=== PATIENT | female | born 1945 | race Caucasian/White ===

== ENCOUNTER → 2017-01-05 | Outpatient (CLI) | payer MEDICARE, OTHER ==
--- NOTE | 2017-01-05 13:28 | RADIOLOGY REPORT (SQ) ---
EXAM DESCRIPTION: CHEST PA/LATERAL COMPLETED DATE/TIME: 01/05/2017 1:18 pm REASON FOR STUDY: TOBACCO USE COMPARISON: 08/28/2011 EXAM PARAMETERS: NUMBER OF VIEWS: two views TECHNIQUE: Digital Frontal and Lateral radiographic views of the chest acquired. RADIATION DOSE: NA LIMITATIONS: none FINDINGS: LUNGS AND PLEURA: No opacities, masses or pneumothorax. No pleural effusion. MEDIASTINUM AND HILAR STRUCTURES: No masses or contour abnormalities. HEART AND VASCULAR STRUCTURES: Heart size is stable. There is ectasia of the thoracic aorta. BONES: No acute findings. HARDWARE: None in the chest. OTHER: No other significant finding. IMPRESSION: NO SIGNIFICANT RADIOGRAPHIC FINDING IN THE CHEST. TECHNICAL DOCUMENTATION: JOB ID: [id number] [employer]- All Rights Reserved
== END ==
LOC: OD 12:55
PROVIDERS: ATTEND Family Medicine
DX: Z72.0 Tobacco use (principal); J45.909 Unspecified asthma, uncomplicated; J98.01 Acute bronchospasm; J44.9 Chronic obstructive pulmonary disease, unspecified
CPT/HCPCS: 71020

== ENCOUNTER → 2017-01-16 | Outpatient (CLI) | payer MEDICARE, OTHER ==
--- NOTE | 2017-01-16 16:59 | WOMENS IMAGING REPORT ---
EXAM DESCRIPTION: BILAT SCREENING MAMMO W/CAD COMPLETED DATE/TIME: 01/16/2017 1:31 pm REASON FOR STUDY: ROUTINE SCREENING; Z12.31 Z12.31 ENCNTR SCREEN MAMMOGRAM FOR MALIGNANT NEOPLASM O F MARQUIS COMPARISON: 2008 TECHNIQUE: Standard craniocaudal and mediolateral oblique views of each breast recorded using digita l acquisition. LIMITATIONS: None. FINDINGS: No masses, calcifications or architectural distortion. No areas of suspicion. Read with the assistance of CAD. .[facility] - R2 Cenova Version 1.3 .[facility] - R2 Cenova Version 1.3 .[facility] - R2 Cenova Version 2.4 .[facility] - R2 Cenova Version 2.4 .[facility] - R2 [employer] Helper Version 9.2 IMPRESSION: NORMAL MAMMOGRAM. BIRADS 1. BREAST DENSITY: b. There are scattered areas of fibroglandular density. BIRAD: 1 NEGATIVE RECOMMENDATION: ROUTINE SCREENING COMMENT: The patient has been notified of the results by letter per SA requirements. Additional no tification policies are in place for contacting patient with suspicious or incomplete findings. Quality ID #[id number]: The [employer] recommends an annual screening mammogram for women aged 40 years or over. This facility utilizes a reminder system to ensure that all patients receive reminder letters, and/or direct phone calls for appointments. This includes reminders for routine scr eening mammograms, diagnostic mammograms, or other Breast Imaging Interventions when appropriate. Th is patient will be placed in the appropriate reminder system. The [employer] (ACR) has developed recommendations for screening MRI of the breast s in certain patient populations, to be used in conjunction with mammography. Breast MRI surveillanc e may be appropriate for women with more than 20% lifetime risk of developing breast cancer as deter mined by genetic testing, significant family history of the disease, or history of mantle radiation f or Hodgkins Disease. ACR Practice Guidelines 2008. TECHNICAL DOCUMENTATION: FINDING NUMBER: (1) ASSESSMENT: (1) JOB ID: [id number] [employer]- All Rights Reserved
== END ==
LOC: WI 08:52
PROVIDERS: ATTEND Family Medicine
DX: Z12.31 Encounter for screening mammogram for malignant neoplasm of breast (principal)
CPT/HCPCS: 77067; G0202

== ENCOUNTER 2017-09-20 21:36 | Inpatient (IN) | payer MEDICARE, OTHER ==
[2017-09-20] MEDS ORDERED: ALBUTEROL SULFATE 0.083% NEB 2.5 MG/3 ML AMPUL NEB ONE (22:07)
[2017-09-20 22:09] LABS: ABSOLUTE BASOPHILS # (AUTO) 0.1 10^3/uL (0.0-0.2); ABSOLUTE MONOCYTES (AUTO) 0.8 10^3/uL (0.1-1.4); ABSOLUTE NEUT (AUTO) 7.9 10^3/uL (1.7-8.2); BASOPHILS % (AUTO) 0.8 % (0-2); EOSINOPHILS % (AUTO) 0.1 % (0-6); HEMATOCRIT 40.4 % (36.0-47.0); HEMOGLOBIN 13.8 g/dL (12.0-15.5); LYMPHOCYTES % (AUTO) 18.4 % (13-45); MEAN CORPUSCULAR HEMOGLOBIN 31.7 pg (27.0-33.4); MEAN CORPUSCULAR HGB CONC 34.2 g/dL (32.0-36.0); MEAN CORPUSCULAR VOLUME 93 fl (80-97); MONOCYTES % (AUTO) 7.3 % (3-13); PLATELET COUNT 247 10^3/uL (150-450); RED BLOOD COUNT 4.35 10^6/uL (3.72-5.28); SEGMENTED NEUTROPHILS % (AUTO) 73.4 % (42-78); TOTAL CELLS COUNTED % (AUTO) 100 %; WHITE BLOOD COUNT 10.8 10^3/uL (4.0-10.5)
--- NOTE | 2017-09-20 22:10 | ER Document Report ---
ED General - General Chief Complaint: Shortness Of Breath Stated Complaint: DIFFICULTY BREATHING Time Seen by Provider: 09/20/17 21:59 Notes: Patient is a 72-year-old female with a history of COPD who continues to smoke presents with complaint of difficulty breathing. She has had fevers for last 2 days. No chest pain. No fever the last 12 hours. Patient's daughter says appears that fever has subsided. Tonight she started having worsening difficulty breathing and some wheezing and daughter said that she is on a very "gurgly". They give her some breathing treatments at home and then called the months. While receiving a breathing treatments at home she coughed up a large amount of mucus in her lung gonzalez seem to clear somewhat that. In the months to give her Solu-Medrol as well as to breathing treatments. When paramedics initially arrived she is 86%. Currently she is 91-93% on room air. She also had an episode diarrhea. With episode diarrhea she had some abdominal pain but currently she has no pain at all. No vomiting. No other complaints at this time. TRAVEL OUTSIDE OF THE [place] IN LAST 30 DAYS: No - Related Data Allergies/Adverse Reactions: latex [Latex] Allergy (Mild, Verified 10/29/11 11:13) NOVACAINE Allergy (Mild, Uncoded 10/29/11 11:13) BAD HEADACHE, STOMACH UPSET Past Medical History - Social History Smoking Status: Current Every Day Smoker Frequency of alcohol use: None Drug Abuse: None Family History: Reviewed & Not Pertinent Patient has suicidal ideation: No Patient has homicidal ideation: No - Past Medical History Cardiac Medical History: Denies: Hx Coronary Artery Disease, Hx Heart Attack, Hx Hypertension Pulmonary Medical History: Reports: Hx Asthma, Hx Bronchitis, Hx COPD, Hx Pneumonia - x2 Neurological Medical History: Denies: Hx Cerebrovascular Accident, Hx Seizures Renal/ Medical History: Denies: Hx Peritoneal Dialysis GI Medical History: Denies: Hx Hepatitis, Hx Hiatal Hernia, Hx Ulcer Musculoskeltal Medical History: Reports Hx Arthritis - knees, ankles Infectious Medical History: Denies: Hx Hepatitis Past Surgical History: Reports: Hx Hysterectomy. Denies: Hx Mastectomy, Hx Open Heart Surgery, Hx Pacemaker - Immunizations Hx Diphtheria, Pertussis, Tetanus Vaccination: Yes Review of Systems - Review of Systems Notes: My Normal Review Basic REVIEW OF SYSTEMS: CONSTITUTIONAL : Fevers EENT: Denies eye, ear, throat, or mouth pain or symptoms. Denies nasal or sinus congestion. CARDIOVASCULAR: Denies chest pain. RESPIRATORY: Coughing and some difficulty breathing. GASTROINTESTINAL: Denies abdominal pain. Denies nausea, vomiting, or diarrhea. Denies constipation. Last BM: MUSCULOSKELETAL: Denies neck or back pain or joint pain or swelling. SKIN: Denies rash or skin lesions. NEUROLOGICAL: Denies altered mental status or loss of consciousness. Denies headache. Denies weakness or paralysis or loss of use of either side. Denies problems with gait or speech. Denies sensory or motor loss. ALL OTHER SYSTEMS REVIEWED AND NEGATIVE. Physical Exam - Vital signs Vitals: Temp Pulse Resp BP Pulse Ox 98.2 F 86 20 104/57 L 93 09/20/17 21:43 09/20/17 21:43 09/20/17 21:43 09/20/17 21:43 09/20/17 21:43 - Notes Notes: General Appearance: Well nourished, alert, cooperative, no acute distress, no obvious discomfort. Vitals: reviewed, See vital signs table. Head: no swelling or tenderness to the head Eyes: PERRL, EOMI, Conjuctiva clear Mouth: No decreasd moisture Throat: No tonsillar inflammation, No airway obstruction Neck: Supple, no neck tenderness Lungs: Few rhonchus breath sounds. No wheezing. No accessory muscle use. No tachypnea. Good air exchange. Heart: Normal rate, Regular rythm, No murmur, no rub Abdomen: Normal BS, soft, No rigidity, No abdominal tenderness, No guarding, no rebound, no abdominal masses, no organomegaly Extremities: strength 5/5 in all extremities, good pulses in all extremities, no swelling or tenderness in the extremities, no edema. Skin: warm, dry, appropriate color, no rash Neuro: speech clear, oriented x 3, normal affect, responds appropriately to questions. Course - Re-evaluation Re-evalutation: 09/21/17 00:13 Patient started to have some desaturations into the 80s. We therefore had to place nasal cannula oxygen on. On reevaluation she is except will be increased wheezing in her lung gonzalez and increased coarse breath sounds. We will give her another breathing treatment. Awaiting the read of the chest x-ray. 09/21/17 02:37 Patient's lung gonzalez have typically improved a little bit since was an albuterol treatment. Stress but whenever we take her off nasal cannula her O2 sats do drop down to about 87-88%. Because of this we will leave her on nasal cannula. Chest x-ray does show pneumonia which is consistent with a recent history of fever and cough. Started on doxycycline. Patient has received Solu- Medrol. I spoke with the hospitalist, Dr. Mancia, who agrees to admit the patient. Dictation of this chart was performed using voice recognition software; therefore, there may be some unintended grammatical errors. - Vital Signs Vital signs: Temp Pulse Resp BP Pulse Ox 98.0 F 86 14 107/68 94 09/21/17 02:00 09/20/17 21:43 09/21/17 02:04 09/21/17 02:00 09/21/17 02:04 - Laboratory Result Diagrams: 09/20/17 21:05 09/20/17 21:05 Laboratory results interpreted by me: 09/20/17 09/20/17 09/20/17 21:05 21:05 22:22 WBC 10.8 H VBG pH 7.50 H Potassium 3.2 L Glucose 195 H Total Protein 5.9 L - EKG Interpretation by Me Additional EKG results interpreted by me: 09/20/17 22:10 EKG is reviewed and interpreted by me. EKG shows sinus rhythm with a rate of [address] segment elevation or depression. There is a lot of baseline artifact making leads V3 and V4 little more difficult to interpret. MT interval , QRS duration, QTc intervals are within normal range. Old EKG for comparison is from December 20, 2012. Discharge - Discharge Clinical Impression: Hypoxemia Pneumonia Qualifiers: Pneumonia type: due to unspecified organism Laterality: unspecified laterality Lung location: unspecified part of lung Qualified Code(s): J18.9 - Pneumonia, unspecified organism Condition: Stable Disposition: ADMITTED OBSERVATION Admitting Provider: Hospitalist Unit Admitted: Telemetry Referrals: MARY ANNE WORLEY MD [Primary Care Provider] - Follow up as needed
[2017-09-20 22:33] LABS: ALANINE AMINOTRANSFERASE 15 U/L (9-52); ALBUMIN 3.5 g/dL (3.5-5.0); ALKALINE PHOSPHATASE 47 U/L (38-126); ANION GAP 11 (5-19); ASPARTATE AMINO TRANSFERASE 16 U/L (14-36); BILIRUBIN,DIRECT 0.2 mg/dL (0.0-0.4); BILIRUBIN,TOTAL 0.4 mg/dL (0.2-1.3); BLOOD UREA NITROGEN 8 mg/dL (7-20); CALCIUM 9.1 mg/dL (8.4-10.2); CARBON DIOXIDE 26 mmol/L (22-30); CHLORIDE 102 mmol/L (98-107); GLUCOSE 195 mg/dL (75-110); POTASSIUM 3.2 mmol/L (3.6-5.0); TOTAL PROTEIN 5.9 g/dL (6.3-8.2)
[2017-09-20 22:39] LABS: VENOUS BLOOD BASE EXCESS 5.1 mmol/L; VENOUS BLOOD HCO3 28.5 mmol/L (20-32); VENOUS BLOOD PCO2 37.5 mmHg (35-63); VENOUS BLOOD PH 7.5 (7.30-7.42)
[2017-09-20 22:49] LABS: A TYPE INFLUENZA AG NEGATIVE (NEGATIVE); B INFLUENZA AG NEGATIVE (NEGATIVE)
--- NOTE | 2017-09-20 23:26 | EKG REPORT ---
SEVERITY:- ABNORMAL ECG - SINUS RHYTHM ANTERIOR INFARCT, OLD : Confirmed by: Alberta Becerra 20-Sep-2017 23:26:40
[2017-09-21] MEDS ORDERED: ALBUTEROL SULFATE 0.083% NEB 2.5 MG/3 ML AMPUL NEB ONE (00:13)
[2017-09-21] MEDS ORDERED: NORMAL SALINE 500 ML IV ONE (00:14)
[2017-09-21] MEDS ORDERED: POTASSIUM CHLORIDE 10 MEQ TABLET.SA PO ONE (00:49)
--- NOTE | 2017-09-21 01:27 | RADIOLOGY REPORT (SQ) ---
EXAM DESCRIPTION: CHEST SINGLE VIEW CLINICAL HISTORY: 72 years Female, difficulty breathing COMPARISON: 6.5.17 NUMBER OF VIEWS/TECHNIQUE: 1/AP LIMITATIONS: None. FINDINGS: Small patchiness of the left lower lobe. Adequate lung volume and normal cardiac silhouette. Intact bony thorax. IMPRESSION: Small left lower lobar pneumonia/atelectasis.
[2017-09-21] MEDS ORDERED: DOXYCYCLINE HYCLATE 100 MG TABLET PO ONE (01:37)
[2017-09-21] MEDS ORDERED: HYDRALAZINE HCL INJ/PF 20 MG/1 ML SDV IV PRN (02:21)
[2017-09-21] MEDS ORDERED: CHLORPHENIRAMINE MALEATE 4 MG TABLET PO ONE (02:21)
[2017-09-21] MEDS ORDERED: GUAIFENESIN SYRP 200 MG/10 ML UDC PO PRN (02:22)
[2017-09-21] MEDS ORDERED: IPRATROPIUM/ALBUTEROL 0.5-2.5 MG/3 ML AMPUL NEB PRN (02:22)
[2017-09-21] MEDS ORDERED: CEFTRIAXONE 1 GM/D5W RTU 1 GM/50 ML RTUPB IV ONE (03:00)
[2017-09-21] MEDS ORDERED: FLUTICASONE NASAL SPRAY 50 MCG/SPRY 120 SPRAY/16 GM NASL ONE (03:00)
[2017-09-21] MEDS ORDERED: CHLORPHENIRAMINE MALEATE 4 MG TABLET ONE (03:01)
[2017-09-21] MEDS ORDERED: FLUTICASONE NASAL SPRAY 50 MCG/SPRY 120 SPRAY/16 GM ONE (03:01)
[2017-09-21] MEDS ORDERED: CEFTRIAXONE INJ 1000 MG VIAL ONE (03:17)
[2017-09-21] MEDS: HEPARIN SOD (PORCINE) 5,000 UNIT/ML 1 ML SYRINGE SUBCUT SCH ×3 (05:26→22:49)
--- NOTE | 2017-09-21 05:55 | PDOC H&P ---
History of Present Illness Admission Date/PCP: 09/21/17 02:36 MARY ANNE WORLEY MD Patient complains of: Shortness of breath History of Present Illness: GEO ZAMBRANO is a 72 year old female with a past medical history of hypothyroidism, dementia oriented to self, COPD with ongoing tobacco dependence. Patient herself has no complaints but accompanied by her daughter who states she has 2 days of subjective fever, nonproductive cough and shortness of breath not alleviated by nebulizer or cigarettes. EMS record oxygen saturation of 86% but currently 91-93% on room air. Workup is unremarkable but he is referred to the hospitalist for observation. Past Medical History Cardiac Medical History: Denies: Coronary Artery Disease, Myocardial Infarction, Hypertension Pulmonary Medical History: Reports: Asthma, Bronchitis, Chronic Obstructive Pulmonary Disease (COPD), Pneumonia - x2 Neurological Medical History: Denies: Seizures GI Medical History: Denies: Hepatitis, Hiatal Hernia Musculoskeltal Medical History: Reports: Arthritis - knees, ankles Psychiatric Medical History: Reports: Dementia, Tobacco Dependency Hematology: Denies: Anemia, Sickle Cell Disease Past Surgical History Past Surgical History: Reports: Hysterectomy Denies: Amputation, Mastectomy, Pacemaker Social History Information Source: Relative, [facility] Records Lives with: Family Smoking Status: Current Every Day Smoker Frequency of Alcohol Use: None - Advance Directive Resuscitation Status: Full Code Family History Family History: Other - Unobtainable Parental Family History Reviewed: Yes Children Family History Reviewed: Yes Sibling(s) Family History Reviewed.: Yes Medication/Allergy Home Medications: Albuterol Sulfate [Albuterol Sulfate 2.5mg/3 mL] 1 vial IH Q4 PRN 09/20/17 Albuterol Sulfate [Proair HFA] 2 puff PO DAILY 09/20/17 Cyproheptadine HCl 4 mg PO BID 09/20/17 Donepezil HCl [Donepezil HCl] 10 mg PO QHS 09/20/17 Levothyroxine Sodium 50 mcg PO DAILY 09/20/17 Allergies/Adverse Reactions: latex [Latex] Allergy (Mild, Verified 10/29/11 11:13) NOVACAINE Allergy (Mild, Uncoded 10/29/11 11:13) BAD HEADACHE, STOMACH UPSET Review of Systems ROS unobtainable: Due to mental status - Unobtainable secondary to dementia Constitutional: ABSENT: chills, fever(s), headache(s), weight gain, weight loss Eyes: ABSENT: visual disturbances Ears: ABSENT: hearing changes Cardiovascular: ABSENT: chest pain, dyspnea on exertion, edema, orthropnea, palpitations Respiratory: ABSENT: cough, hemoptysis Gastrointestinal: ABSENT: abdominal pain, constipation, diarrhea, hematemesis, hematochezia, nausea, vomiting Genitourinary: ABSENT: dysuria, hematuria Musculoskeletal: ABSENT: joint swelling Integumentary: ABSENT: rash, wounds Neurological: ABSENT: abnormal gait, abnormal speech, confusion, dizziness, focal weakness, syncope Psychiatric: ABSENT: anxiety, depression, homidical ideation, suicidal ideation Endocrine: ABSENT: cold intolerance, heat intolerance, polydipsia, polyuria Hematologic/Lymphatic: ABSENT: easy bleeding, easy bruising Physical Exam Vital Signs: Temp Pulse Resp BP Pulse Ox 97.5 F 86 17 95/58 L 96 09/21/17 05:30 09/20/17 21:43 09/21/17 05:01 09/21/17 05:00 09/21/17 05:01 General appearance: PRESENT: no acute distress, cooperative, disheveled, thin Head exam: PRESENT: atraumatic Eye exam: PRESENT: conjunctiva pink, EOMI, PERRLA. ABSENT: scleral icterus Ear exam: PRESENT: normal external ear exam Mouth exam: PRESENT: moist, tongue midline Neck exam: ABSENT: carotid bruit, JVD, lymphadenopathy, thyromegaly Respiratory exam: PRESENT: accessory muscle use, crackles, rales, tachypnea, wheezes Cardiovascular exam: PRESENT: RRR. ABSENT: diastolic murmur, rubs, systolic murmur Pulses: PRESENT: normal dorsalis pedis pul Vascular exam: PRESENT: normal capillary refill GI/Abdominal exam: PRESENT: normal bowel sounds, soft. ABSENT: distended, guarding, mass, organolmegaly, rebound, tenderness Rectal exam: PRESENT: deferred Extremities exam: PRESENT: full ROM. ABSENT: calf tenderness, clubbing, pedal edema Neurological exam: PRESENT: alert, awake, oriented to person, CN II-XII grossly intact. ABSENT: motor sensory deficit Psychiatric exam: PRESENT: appropriate affect, normal mood. ABSENT: homicidal ideation, suicidal ideation Skin exam: PRESENT: dry, intact, warm. ABSENT: cyanosis, rash Results Impressions: Chest X-Ray 09/20/17 21:51 IMPRESSION: Small left lower lobar pneumonia/atelectasis. Assessment & Plan - Diagnosis (1) Acute exacerbation of chronic bronchitis Is this a current diagnosis for this admission?: Yes Plan: Telemetry observation, albuterol and Atrovent, prednisone and incentive spirometry with flutter valve if able. (2) COPD exacerbation Is this a current diagnosis for this admission?: Yes Plan: Incentive spirometry, flutter valve, supplemental oxygen and tobacco avoidance (3) Hypokalemia Is this a current diagnosis for this admission?: Yes Plan: Evaluate magnesium and replete as needed reevaluate chemistry (4) Dementia Is this a current diagnosis for this admission?: Yes Plan: Supportive care evaluate TSH given history (5) Tobacco dependence Is this a current diagnosis for this admission?: Yes Plan: Tobacco Dependence patient received tobacco cessation counseling and offered nicotine replacement options - Time Time Spent: 50 to 70 Minutes
[2017-09-21] MEDS ORDERED: HEPARIN SOD (PORCINE) 5,000 UNIT/ML 1 ML SYRINGE SUBCUT SCH (06:00)
[2017-09-21 06:09] LABS: HEMATOCRIT 40.9 % (36.0-47.0); MEAN CORPUSCULAR HEMOGLOBIN 31.6 pg (27.0-33.4); MEAN CORPUSCULAR HGB CONC 34.1 g/dL (32.0-36.0); MEAN CORPUSCULAR VOLUME 93 fl (80-97); PLATELET COUNT 250 10^3/uL (150-450); RED BLOOD COUNT 4.42 10^6/uL (3.72-5.28); WHITE BLOOD COUNT 9.4 10^3/uL (4.0-10.5)
[2017-09-21 06:23] LABS: ANION GAP 12 (5-19); BLOOD UREA NITROGEN 9 mg/dL (7-20); CALCIUM 9.4 mg/dL (8.4-10.2); CARBON DIOXIDE 25 mmol/L (22-30); CHLORIDE 104 mmol/L (98-107); GLUCOSE 171 mg/dL (75-110); POTASSIUM 4.1 mmol/L (3.6-5.0)
[2017-09-21] MEDS: IPRATROPIUM/ALBUTEROL 0.5-2.5 MG/3 ML AMPUL NEB SCH ×3 (08:05→20:34)
[2017-09-21] MEDS: FLUTICASONE NASAL SPRAY 50 MCG/SPRY 120 SPRAY/16 GM NASL SCH ×2 (09:34→22:51)
[2017-09-21] MEDS: LEVOTHYROXINE SODIUM 0.05 MG TABLET PO SCH (09:34)
[2017-09-21] MEDS: AZITHROMYCIN 500 MG in DEXTROSE 5%-WATER 250 ML IV SCH (09:35)
--- NOTE | 2017-09-21 11:15 | PDOC PROGRESS REPORT ---
Subjective Progress Note for:: 09/21/17 Subjective:: This is a follow-up visit for COPD exacerbation and acute bronchitis. The patient is pleasantly demented and does not assist in any review of symptoms. She has 3 daughters and a son-in-law at the bedside who were quite upset that the patient is still down in the emergency room after having been told that their mother would have a room within 30 minutes of admission. I have explained the patient's current diagnoses. According to their report they find their mother to only be slightly better than when she came in. Her daughter states that she was breathing worse than what I see her at the bedside. [facility]. I informed them that I have been in contact with the nursing preparation plant supervisor who states that the hospital is working to get all patients out of the ER no later than 3 PM. There are however no guarantees. Patient's family has agreed to wait to see if she can get a bed. If not then they would like for her to be transferred out of the hospital. Reason For Visit: COPD EXACERBATION C PNEUMONIA Physical Exam Vital Signs: Temp Pulse Resp BP Pulse Ox 97.5 F 48 L 18 114/66 95 09/21/17 05:30 09/21/17 08:05 09/21/17 09:01 09/21/17 09:00 09/21/17 09:01 GENERAL: This is a well-developed and thin appearing elderly white female resting in bed currently in no acute distress. HEART: Regular rate and rhythm. No murmurs, rubs or gallops. LUNGS: Coarse breath sounds bilaterally throughout with equal rise and fall of the chest. Nasal cannula is in place. ABDOMEN: Soft, nontender, nondistended with normoactive bowel sounds EXTREMETIES: No clubbing, cyanosis or edema. 2+ peripheral pulses bilaterally. NEURO: Awake. She is not oriented to person place or time. Patient moves all extremities. Results Laboratory Results: 09/21/17 05:50 09/21/17 05:50 09/21/17 09/21/17 09/21/17 05:50 05:50 05:50 WBC 9.4 RBC 4.42 Hgb 14.0 Hct 40.9 MCV 93 MCH 31.6 MCHC 34.1 RDW 13.0 Plt Count 250 Sodium 141.0 Potassium 4.1 Chloride 104 Carbon Dioxide 25 Anion Gap 12 BUN 9 Creatinine 0.66 Est GFR ( Amer) > 60 Est GFR (Non-Af Amer) > 60 Glucose 171 H Calcium 9.4 TSH 2.83 Impressions: Chest X-Ray 09/20/17 21:51 IMPRESSION: Small left lower lobar pneumonia/atelectasis. Assessment & Plan - Diagnosis (1) Acute respiratory failure with hypoxemia Is this a current diagnosis for this admission?: Yes Plan: Patient is not usually on oxygen at home. Her recorded sats by EMS were in the very low 80s. Continue supplemental oxygen to maintain sats between 88 and 92% . Respiratory failure is likely secondary to COPD exacerbation with acute bronchitis. Apparently the patient had influenza a week ago. (2) Acute bronchitis Is this a current diagnosis for this admission?: Yes Plan: Continue antibiotics. Chest x-ray suggests atelectasis versus a very small pneumonia. The patient does not have an elevated white blood cell count, fever and likely atelectasis. However because she is quite elderly and recently had the flu, we do not want to miss the superimposed pneumonia. Recheck chest x- ray in the morning. (3) COPD exacerbation Is this a current diagnosis for this admission?: Yes Plan: Continue nebulizer treatments. No wheezes on auscultation. I am going to hold off on steroids for now. Continue antibiotics for now. (4) Hypokalemia Is this a current diagnosis for this admission?: Yes Plan: This was replaced and is resolved. (5) Dementia Is this a current diagnosis for this admission?: Yes Plan: Patient's family states that she usually ambulates at will and that she has not been herself and constantly sleeping. Continue to monitor. This likely acute encephalopathy superimposed on dementia, based on their description (6) Tobacco dependence Is this a current diagnosis for this admission?: Yes Plan: Smoking cessation is advised. The patient smokes 2 packs per day. She lives with her granddaughter and her daughters have tried to limit her to just one pack. - Time Time Spent with patient: 25-34 minutes - Inpatient Certification Medical Necessity: Need for IV Antibiotics
[2017-09-21] MEDS: ACETAMINOPHEN 325 MG TABLET PO PRN ×2 (16:33→20:41)
[2017-09-21] MEDS ORDERED: (PENDING PHARMACY ID) (Donepezil Hcl [Donepezil Hcl] 10 MG) PO SCH (22:00)
[2017-09-21] MEDS ORDERED: CEFTRIAXONE 1 GM/D5W RTU 1 GM/50 ML RTUPB IV SCH (22:00)
[2017-09-21] MEDS: CEFTRIAXONE SODIUM 1,000 MG in NORMAL SALINE 100 ML IV SCH (22:49)
[2017-09-22] MEDS: IPRATROPIUM/ALBUTEROL 0.5-2.5 MG/3 ML AMPUL NEB SCH ×4 (01:59→19:41)
[2017-09-22] MEDS: HEPARIN SOD (PORCINE) 5,000 UNIT/ML 1 ML SYRINGE SUBCUT SCH ×3 (05:43→23:29)
[2017-09-22 06:44] LABS: HEMOGLOBIN 12.7 g/dL (12.0-15.5); MEAN CORPUSCULAR HGB CONC 33.5 g/dL (32.0-36.0); MEAN CORPUSCULAR VOLUME 93 fl (80-97); PLATELET COUNT 278 10^3/uL (150-450); RED BLOOD COUNT 4.11 10^6/uL (3.72-5.28); RED CELL DISTRIBUTION WIDTH 12.7 % (11.5-14.0); WHITE BLOOD COUNT 10.7 10^3/uL (4.0-10.5)
[2017-09-22 06:56] LABS: ANION GAP 7 (5-19); BLOOD UREA NITROGEN 9 mg/dL (7-20); CALCIUM 8.7 mg/dL (8.4-10.2); CARBON DIOXIDE 26 mmol/L (22-30); CHLORIDE 108 mmol/L (98-107); GLUCOSE 85 mg/dL (75-110); SODIUM 140.9 mmol/L (137-145)
--- NOTE | 2017-09-22 08:13 | RADIOLOGY REPORT (SQ) ---
EXAM DESCRIPTION: CHEST SINGLE VIEW COMPLETED DATE/TIME: 09/22/2017 7:50 am REASON FOR STUDY: atelactasis vs pneumonia COMPARISON: 09/20/2017 EXAM PARAMETERS: NUMBER OF VIEWS: One view. TECHNIQUE: Single frontal radiographic view of the chest acquired. RADIATION DOSE: NA LIMITATIONS: None. FINDINGS: LUNGS AND PLEURA: Lungs currently clear with resolution of the recent left lower lobe pneu monia. MEDIASTINUM AND HILAR STRUCTURES: No masses. Contour normal. HEART AND VASCULAR STRUCTURES: Heart normal in size. Normal vasculature. BONES: No acute findings. HARDWARE: None in the chest. OTHER: No other significant finding. IMPRESSION: Lungs currently clear. TECHNICAL DOCUMENTATION: JOB ID: [id number] [employer]- All Rights Reserved
[2017-09-22] MEDS: ACETAMINOPHEN 325 MG TABLET PO PRN (09:18)
[2017-09-22] MEDS: LEVOTHYROXINE SODIUM 0.05 MG TABLET PO SCH (09:18)
[2017-09-22] MEDS: AZITHROMYCIN 500 MG in DEXTROSE 5%-WATER 250 ML IV SCH (09:19)
[2017-09-22] MEDS: FLUTICASONE NASAL SPRAY 50 MCG/SPRY 120 SPRAY/16 GM NASL SCH ×2 (09:19→23:29)
[2017-09-22] MEDS ORDERED: CYPROHEPTADINE HCL 4 MG TABLET PO SCH (10:00)
--- NOTE | 2017-09-22 16:16 | PDOC PROGRESS REPORT ---
Subjective Progress Note for:: 09/22/17 Subjective:: Daughter at bedside with multiple concerns. Daughter states that patient's been coughing up very thick sputum. Daughter reports that patient does cough that is usually nonproductive. Daughter also reports that patient lost her in October 2016 and feels that her mother is very depressed. Daughter also reports that patient smokes about 2 packs per day and has been trying to encourage her mother to stop smoking. Daughter also states that patient's appetite has been very poor and that she has been placed on appetite stimulant which seems to help. Daughter is concerned that patient is not receiving her Aricept and has requested that it be restarted. Reason For Visit: COPD EXACERBATION C PNEUMONIA Physical Exam Vital Signs: Temp Pulse Resp BP Pulse Ox 97.5 F 58 L 16 108/58 L 94 09/22/17 11:00 09/22/17 14:00 09/22/17 14:00 09/22/17 11:00 09/22/17 14:00 Intake & Output 09/21/17 09/22/17 09/23/17 06:59 06:59 06:59 Intake Total 110 Output Total 600 Balance -490 Weight 55.4 kg General appearance: PRESENT: no acute distress, thin Head exam: PRESENT: atraumatic, normocephalic Eye exam: PRESENT: conjunctiva pink, EOMI. ABSENT: scleral icterus Ear exam: PRESENT: normal external ear exam Mouth exam: PRESENT: moist, tongue midline Neck exam: ABSENT: carotid bruit, JVD, lymphadenopathy, thyromegaly Respiratory exam: PRESENT: accessory muscle use, prolonged expiratory phas, wheezes. ABSENT: rales, rhonchi Cardiovascular exam: PRESENT: RRR. ABSENT: diastolic murmur, rubs, systolic murmur Pulses: PRESENT: normal dorsalis pedis pul Vascular exam: PRESENT: normal capillary refill GI/Abdominal exam: PRESENT: normal bowel sounds, soft. ABSENT: distended, guarding, mass, organolmegaly, rebound, tenderness Rectal exam: PRESENT: deferred Extremities exam: PRESENT: full ROM. ABSENT: calf tenderness, clubbing, pedal edema Musculoskeletal exam: PRESENT: full ROM Neurological exam: PRESENT: alert, awake, oriented to person, oriented to place , oriented to time, oriented to situation, CN II-XII grossly intact. ABSENT: motor sensory deficit Psychiatric exam: PRESENT: appropriate affect, normal mood. ABSENT: homicidal ideation, suicidal ideation Skin exam: PRESENT: dry, intact, warm. ABSENT: cyanosis, rash Results Laboratory Results: 09/22/17 05:45 09/22/17 05:45 09/22/17 09/22/17 05:45 05:45 WBC 10.7 H RBC 4.11 Hgb 12.7 Hct 38.0 MCV 93 MCH 31.0 MCHC 33.5 RDW 12.7 Plt Count 278 Sodium 140.9 Potassium 4.0 Chloride 108 H Carbon Dioxide 26 Anion Gap 7 BUN 9 Creatinine 0.64 Est GFR ( Amer) > 60 Est GFR (Non-Af Amer) > 60 Glucose 85 Calcium 8.7 Impressions: Chest X-Ray 09/22/17 07:00 IMPRESSION: Lungs currently clear. Assessment & Plan - Diagnosis (1) Depression Is this a current diagnosis for this admission?: Yes Plan: We will consult Dr. Tomás Cohen to evaluate patient. Daughter is very concerned that mother is very depressed due to the loss of her . (2) Moderate protein-calorie malnutrition Is this a current diagnosis for this admission?: Yes Plan: We will place patient on Megace 800 mg p.o. daily. Patient and daughter state that patient does not like supplemental drinks therefore will allow patient to have regular diet. Will CT chest to evaluate for possible lung mass (3) Debility Is this a current diagnosis for this admission?: Yes Plan: We will have patient work with PT OT (4) Acute bronchitis Is this a current diagnosis for this admission?: Yes Plan: We will continue current antibiotics. Will order CT of chest to evaluate for possible pneumonia. (5) Acute respiratory failure with hypoxemia Is this a current diagnosis for this admission?: Yes Plan: We will continue breathing treatments, steroids, and antibiotics. (6) COPD exacerbation Is this a current diagnosis for this admission?: Yes Plan: We will continue steroids, breathing treatments, and antibiotics. Will consult pulmonary to help assist with care. CT of chest has been ordered to evaluate for pneumonia (7) Dementia Is this a current diagnosis for this admission?: Yes Plan: Aricept restarted. (8) Pneumonia Qualifiers: Pneumonia type: due to unspecified organism Laterality: unspecified laterality Lung location: unspecified part of lung Qualified Code(s): J18.9 - Pneumonia, unspecified organism Is this a current diagnosis for this admission?: Yes Plan: We will continue current antibiotics. Will check CT of chest to evaluate for pneumonia. (9) Tobacco dependence Is this a current diagnosis for this admission?: Yes Plan: will place order for nicotine patch
[2017-09-22] MEDS ORDERED: DONEPEZIL HCL 5 MG TABLET PO ONE ×2 (17:00→20:00)
--- NOTE | 2017-09-22 17:36 | RADIOLOGY REPORT (SQ) ---
EXAM DESCRIPTION: CT CHEST WITHOUT COMPLETED DATE/TIME: 09/22/2017 5:24 pm REASON FOR STUDY: concern for Pneumonia COMPARISON: CT chest from 08/22/2000 TECHNIQUE: CT scan performed of the chest without intravenous contrast. Images reviewed with lung, soft tissue and bone windows. Reconstructed coronal and sagittal MPR images reviewed. All images st ored on PACS. All CT scanners at this facility use dose modulation, iterative reconstruction, and/or weight based d osing when appropriate to reduce radiation dose to as low as reasonably achievable (ALARA). [facility]: Dose Right [facility]: CareDose [facility]: Dose Right [facility]: Teradose 4D [facility]: Smart Sponsia RADIATION DOSE: CT Rad equipment meets quality standard of care and radiation dose reduction techniq ues were employed. CTDIvol: 5.4 mGy. DLP: 196 mGy-cm. mGy. LIMITATIONS: No technical limitations. FINDINGS: LUNGS AND PLEURA: There is bilateral lower lobe airspace disease. There are tree-in-bud o pacities within the left upper lobe. No significant pleural effusion. No pneumothorax. HILAR AND MEDIASTINAL STRUCTURES: No identified masses or abnormal nodes. No obvious aneurysm. HEART AND VASCULAR STRUCTURES: Atherosclerotic calcifications including coronary artery calcification s Stable ascending thoracic aortic aneurysm measuring 4.2 cm. No pericardial effusion. UPPER ABDOMEN: No significant findings. Limited exam. THYROID AND OTHER SOFT TISSUES: No masses. No adenopathy. BONES: No significant finding. HARDWARE: None in the chest. OTHER: No other significant findings. IMPRESSION: BILATERAL LOWER LOBE AIRSPACE DISEASE WITH TREE-IN-BUD OPACITIES LEFT UPPER LOBE COMPATI BLE MULTIFOCAL PNEUMONIA/PNEUMONITIS. STABLE ASCENDING THORACIC AORTIC ANEURYSM. TECHNICAL DOCUMENTATION: JOB ID: [id number] Quality ID # [id number]: Final reports with documentation of one or more dose reduction techniques (e.g., Au tomated exposure control, adjustment of the mA and/or kV according to patient size, use of iterative reconstruction technique) 2010 [employer]- All Rights Reserved
[2017-09-22] MEDS ORDERED: CYPROHEPTADINE HCL 4 MG TABLET PO ONE (18:00)
[2017-09-22] MEDS: CEFTRIAXONE SODIUM 1,000 MG in NORMAL SALINE 100 ML IV SCH (23:28)
[2017-09-22] MEDS: METHYLPREDNISOLONE INJ 40 MG/1 ML SDV IV SCH (23:29)
[2017-09-23] MEDS: IPRATROPIUM/ALBUTEROL 0.5-2.5 MG/3 ML AMPUL NEB SCH ×4 (02:04→20:25)
[2017-09-23] MEDS: METHYLPREDNISOLONE INJ 40 MG/1 ML SDV IV SCH ×2 (05:51→22:11)
[2017-09-23] MEDS: HEPARIN SOD (PORCINE) 5,000 UNIT/ML 1 ML SYRINGE SUBCUT SCH ×3 (05:51→22:11)
[2017-09-23 06:52] LABS: ALANINE AMINOTRANSFERASE 26 U/L (9-52); ALKALINE PHOSPHATASE 50 U/L (38-126); ANION GAP 9 (5-19); ASPARTATE AMINO TRANSFERASE 14 U/L (14-36); BILIRUBIN,DIRECT 0.2 mg/dL (0.0-0.4); BILIRUBIN,TOTAL 0.2 mg/dL (0.2-1.3); BLOOD UREA NITROGEN 8 mg/dL (7-20); CALCIUM 8.6 mg/dL (8.4-10.2); CARBON DIOXIDE 24 mmol/L (22-30); CHLORIDE 108 mmol/L (98-107); GLUCOSE 139 mg/dL (75-110); POTASSIUM 4.6 mmol/L (3.6-5.0); SODIUM 141.4 mmol/L (137-145); TOTAL PROTEIN 5.7 g/dL (6.3-8.2)
[2017-09-23 07:20] LABS: HEMATOCRIT 38.5 % (36.0-47.0); HEMOGLOBIN 12.9 g/dL (12.0-15.5); MEAN CORPUSCULAR HGB CONC 33.5 g/dL (32.0-36.0); MEAN CORPUSCULAR VOLUME 93 fl (80-97); PLATELET COUNT 315 10^3/uL (150-450); RED BLOOD COUNT 4.15 10^6/uL (3.72-5.28); RED CELL DISTRIBUTION WIDTH 13.1 % (11.5-14.0); WHITE BLOOD COUNT 7.9 10^3/uL (4.0-10.5)
[2017-09-23 08:39] LABS: ABSOLUTE LYMPHOCYTES# (MANUAL) 0.9 10^3/uL (0.5-4.7); ABSOLUTE MONOCYTES # (MANUAL) 0.2 10^3/uL (0.1-1.4); ABSOLUTE NEUTROPHILS# (MANUAL) 6.9 10^3/uL (1.7-8.2); BASOPHILS % (MANUAL) 0 % (0-2); EOSINOPHILS % (MANUAL) 0 % (0-6); HYPOCHROMASIA SLIGHT; LYMPHOCYTES % (MANUAL) 11 % (13-45); MONOCYTES % (MANUAL) 2 % (3-13); PLATELET CLUMPS PRESENT; SEGMENTED NEUTROPHILS % (MAN) 87 % (42-78); TOTAL CELLS COUNTED 100; TOXIC GRANULATION SLIGHT
[2017-09-23 09:22] LABS: APPEARANCE,URINE CLEAR; BILIRUBIN,URINE NEGATIVE (NEGATIVE); COLOR,URINE YELLOW; GLUCOSE, URINE NEGATIVE (NEGATIVE); KETONES,URINE NEGATIVE (NEGATIVE); LEUKOCYTE ESTERASE,URINE MODERATE (NEGATIVE); NITRITE,URINE NEGATIVE (NEGATIVE); PROTEIN,URINE NEGATIVE (NEGATIVE); UROBILINOGEN,URINE NEGATIVE mg/dL (<2.0)
[2017-09-23] MEDS: CYPROHEPTADINE HCL 4 MG TABLET PO SCH ×2 (09:36→17:38)
[2017-09-23] MEDS: LEVOTHYROXINE SODIUM 0.05 MG TABLET PO SCH (09:36)
[2017-09-23] MEDS: MEGESTROL ACETATE SUSP 400 MG/10 ML UDCUP PO SCH (09:36)
[2017-09-23] MEDS: NICOTINE 21 MG/24 HR PATCH.TD24 TD SCH ×2 (09:37→22:20)
[2017-09-23] MEDS: FLUTICASONE NASAL SPRAY 50 MCG/SPRY 120 SPRAY/16 GM NASL SCH ×2 (09:37→22:11)
[2017-09-23] MEDS: AZITHROMYCIN 500 MG in DEXTROSE 5%-WATER 250 ML IV SCH (09:49)
--- NOTE | 2017-09-23 14:55 | PDOC PROGRESS REPORT ---
Subjective Progress Note for:: 09/23/17 Subjective:: She states her breathing is improving. Patient states that she is not coughing up as much phlegm. Reason For Visit: COPD EXACERBATION C PNEUMONIA Physical Exam Vital Signs: Temp Pulse Resp BP Pulse Ox 97.4 F 68 18 99/41 L 90 L 09/23/17 12:00 09/23/17 14:23 09/23/17 14:23 09/23/17 12:00 09/23/17 14:23 Intake & Output 09/22/17 09/23/17 09/24/17 06:59 06:59 06:59 Intake Total 110 1265 320 Output Total 600 1250 Balance -490 15 320 Weight 98.7 kg 59.2 kg General appearance: PRESENT: no acute distress, well-developed, well-nourished Head exam: PRESENT: atraumatic, normocephalic Eye exam: PRESENT: conjunctiva pink, EOMI. ABSENT: scleral icterus Ear exam: PRESENT: normal external ear exam Mouth exam: PRESENT: moist, tongue midline Neck exam: ABSENT: carotid bruit, JVD, lymphadenopathy, thyromegaly Respiratory exam: PRESENT: other - Positive for prolonged expiratory phase, decreased accessory muscle use, no wheezing heard this morning anteriorly Cardiovascular exam: PRESENT: RRR. ABSENT: diastolic murmur, rubs, systolic murmur Pulses: PRESENT: normal dorsalis pedis pul Vascular exam: PRESENT: normal capillary refill GI/Abdominal exam: PRESENT: normal bowel sounds, soft. ABSENT: distended, guarding, mass, organolmegaly, rebound, tenderness Rectal exam: PRESENT: deferred Extremities exam: PRESENT: full ROM. ABSENT: calf tenderness, clubbing, pedal edema Musculoskeletal exam: PRESENT: full ROM Neurological exam: PRESENT: alert, awake, oriented to person, oriented to place , oriented to time, oriented to situation, CN II-XII grossly intact. ABSENT: motor sensory deficit Psychiatric exam: PRESENT: appropriate affect, normal mood. ABSENT: homicidal ideation, suicidal ideation Skin exam: PRESENT: dry, intact, warm. ABSENT: cyanosis, rash Results Laboratory Results: 09/23/17 05:31 09/23/17 05:31 09/23/17 09/23/17 09/23/17 05:31 05:31 08:40 WBC 7.9 RBC 4.15 Hgb 12.9 Hct 38.5 MCV 93 MCH 31.0 MCHC 33.5 RDW 13.1 Plt Count 315 Seg Neutrophils % Not Reportable Lymphocytes % Not Reportable Monocytes % Not Reportable Eosinophils % Not Reportable Basophils % Not Reportable Absolute Neutrophils Not Reportable Absolute Lymphocytes Not Reportable Absolute Monocytes Not Reportable Absolute Eosinophils Not Reportable Absolute Basophils Not Reportable Sodium 141.4 Potassium 4.6 Chloride 108 H Carbon Dioxide 24 Anion Gap 9 BUN 8 Creatinine 0.63 Est GFR ( Amer) > 60 Est GFR (Non-Af Amer) > 60 Glucose 139 H Calcium 8.6 Total Bilirubin 0.2 AST 14 ALT 26 Alkaline Phosphatase 50 Total Protein 5.7 L Albumin 3.0 L Urine Color YELLOW Urine Appearance CLEAR Urine pH 7.0 Ur Specific [place] 1.010 Urine Protein NEGATIVE Urine Glucose (UA) NEGATIVE Urine Ketones NEGATIVE Urine Blood NEGATIVE Urine Nitrite NEGATIVE Ur Leukocyte Esterase MODERATE H Urine WBC (Auto) 5 Urine RBC (Auto) 1 Impressions: Chest CT 09/22/17 00:00 IMPRESSION: BILATERAL LOWER LOBE AIRSPACE DISEASE WITH TREE-IN-BUD OPACITIES LEFT UPPER LOBE COMPATIBLE MULTIFOCAL PNEUMONIA/PNEUMONITIS. STABLE ASCENDING THORACIC AORTIC ANEURYSM. Chest X-Ray 09/22/17 07:00 IMPRESSION: Lungs currently clear. Assessment & Plan - Diagnosis (1) Depression Is this a current diagnosis for this admission?: Yes Plan: Will await recommendations from Dr. Tomás Cohen (2) Moderate protein-calorie malnutrition Is this a current diagnosis for this admission?: Yes Plan: Continue Megace. (3) Debility Is this a current diagnosis for this admission?: Yes Plan: We will have patient work with PT OT (4) Acute bronchitis Is this a current diagnosis for this admission?: Yes Plan: CT demonstrates evidence consistent with multifocal pneumonia (5) Acute respiratory failure with hypoxemia Is this a current diagnosis for this admission?: Yes Plan: In setting of pneumonia and COPD exacerbation: We will discontinue Rocephin and place patient on Levaquin. Due to tree in bud presentation patient could have MAC therefore will continue the Zithromax (6) COPD exacerbation Is this a current diagnosis for this admission?: Yes Plan: We will discontinue Rocephin and place patient on Levaquin. Will space steroids to every 12 hours. Will continue breathing treatments. (7) Dementia Is this a current diagnosis for this admission?: Yes Plan: Aricept (8) Pneumonia Qualifiers: Pneumonia type: due to unspecified organism Laterality: unspecified laterality Lung location: unspecified part of lung Qualified Code(s): J18.9 - Pneumonia, unspecified organism Is this a current diagnosis for this admission?: Yes Plan: Community-acquired pneumonia gram-positive organism: Patient on Levaquin. Due to patient having tree in bud appearance on CT will continue Zithromax for possible MAC. (9) Tobacco dependence Is this a current diagnosis for this admission?: Yes Plan: nicotine patch - Time Time Spent with patient: 15-24 minutes
[2017-09-23] MEDS ORDERED: LEVOFLOXACIN 750 MG TABLET PO ONE (15:30)
--- NOTE | 2017-09-23 16:12 | PSYCHOLOGICAL NOTE ---
Psych Note - Psych Note Psych Note: Reason for consult : Depression Collateral: Patient's granddaughter present Nayely Rivera . Patient's granddaughter reports patient has been without her dementia medication for 5 days due to the effect it had on her heart. Patient's daughter reports at this time patient is living in the past and has been talking about her ( who has passed years ago). Patient's granddaughter reports she lives with her and is has her aunt who lives next door and helps her taking care of her mother. Patient's grand daughter reports patient has had a lot of health issues and due to her health issues had been laying in bed for days, could hear crackling noises coming from her chest. Patient's grand daughter reports patient has seen a specialist for her dementia. Patient reports she has a history of depression but states " I have a lot to live for". Denies SI/HI. Patient reports she is good and doesnt need anything. Clinician observed patient is tired and is strained to have a conversation due to the status of her health ( pneumonia). Medication Recommendation: Medication recommendation made by psychiatric provider Dr. Og MD. 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 Recommendation to avoid psych medications due to the Cyproheptadine she is on. There is a possibility of Central Nervous System Depression and psychomotor impairment.
--- NOTE | 2017-09-23 16:26 | PDOC CONSULTATION ---
Consultation Consult Date: 09/23/17 Attending physician:: RY SANTA Consult reason:: Acute/chronic respiratory failure History of Present Illness Admission Date/PCP: 09/21/17 02:36 MARY ANNE WORLEY MD History of Present Illness: GEO ZAMBRANO is a 72 year old female with a past medical history of hypothyroidism, dementia oriented to self, COPD with ongoing tobacco dependence. Patient herself has no complaints but accompanied by her daughter who states she has 2 days of subjective fever, nonproductive cough and shortness of breath not alleviated by nebulizer or cigarettes. EMS record oxygen saturation of 86% but currently 91-93% on room air. She admits to dyspnea on exertion with activities of daily living. She denies hemoptysis her PPD status was negative dates unknown she denies any history of chronic lung disease as a child or adolescent she admits to exposure to passive smoke as a child as well as an adult she herself is smoked one half packs a day for 50 giving her approximately [id number] history. 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 1 dog sitting hair and chickens that are outside the swelling. She denies any recent travel except went to [place] for approximately 4 days she denies angina-like chest pain is on one pillow weekly PND occasional nocturnal cough no edema. She admits to snoring, restless sleep nocturia 2-3 times per night unrestful sleep and excessive daytime somnolence. Most of the history is confirmed by family members as the patient does display some obvious but mild dementia Past Medical History Cardiac Medical History: Denies: Coronary Artery Disease, Myocardial Infarction, Hypertension Pulmonary Medical History: Reports: Asthma, Bronchitis, Chronic Obstructive Pulmonary Disease (COPD), Pneumonia - x2 EENT Medical History: Reports: Cataracts Neurological Medical History: Denies: Seizures Endocrine Medical History: Reports: Hyperthyroidism, Hypothyroidism Renal/ Medical History: Denies: End Stage Renal Disease, Nephrolithiasis Malignancy Medical History: Denies: Bone Cancer, Brain Cancer, Colorectal Cancer, Leukemia, Liver Cancer , Lymphoma, Ovarian Cancer, Pancreatic Cancer GI Medical History: Denies: Cirrhosis, Crohn's Disease, Diverticulitis, Hepatitis, Hiatal Hernia Musculoskeltal Medical History: Reports: Arthritis - knees, ankles Denies: Fibromyalgia Skin Medical History: Denies: Eczema, Psoriasis Psychiatric Medical History: Reports: Dementia, Depression, Tobacco Dependency Traumatic Medical History: Denies: Pneumothorax, Traumatic Brain Injury Hematology: Denies: Anemia, Sickle Cell Disease Infectious Medical History: Denies: Hepatitis B, Hepatitis C, HIV Past Surgical History Past Surgical History: Reports: Hysterectomy Denies: Amputation, Mastectomy, Pacemaker Social History Information Source: Relative, [facility] Records 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 Lives with: Family Smoking Status: Current Some Day Smoker Cigarettes Packs Per Day: 1 Last Time Smoked: 09/20/2017 Frequency of Alcohol Use: None Hx Recreational Drug Use: No Drugs: None Hx Prescription Drug Abuse: No Do you have pets?: Yes Have you had any respiratory illnesses as a child?: No Have you travelled outside of [place] in the past 12 months?: Yes - [facility] - Advance Directive Resuscitation Status: Full Code Family History Family History: Other - Unobtainable Parental Family History Reviewed: Yes Children Family History Reviewed: Yes Sibling(s) Family History Reviewed.: Yes Medication/Allergy Home Medications: Cyproheptadine HCl 4 mg PO BID 09/20/17 Donepezil HCl [Donepezil HCl] 10 mg PO QHS 09/20/17 Levothyroxine Sodium 50 mcg PO Q6AM 09/20/17 Allergies/Adverse Reactions: latex [Latex] Allergy (Mild, Verified 10/29/11 11:13) NOVACAINE Allergy (Mild, Uncoded 10/29/11 11:13) BAD HEADACHE, STOMACH UPSET Review of Systems ROS unobtainable: Due to mental status Gastrointestinal: PRESENT: diarrhea Neurological: PRESENT: confusion, frequent falls, memory loss Psychiatric: ABSENT: anxiety, homidical ideation, suicidal ideation Endocrine: ABSENT: menstrual abnormalities Hematologic/Lymphatic: PRESENT: easy bruising Physical Exam Vital Signs: Temp Pulse Resp BP Pulse Ox 97.4 F 68 18 99/41 L 90 L 09/23/17 12:00 09/23/17 14:23 09/23/17 14:23 09/23/17 12:00 09/23/17 14:23 Intake & Output 09/22/17 09/23/17 09/24/17 06:59 06:59 06:59 Intake Total 110 1265 320 Output Total 600 1250 Balance -490 15 320 Weight 98.7 kg 59.2 kg General appearance: PRESENT: no acute distress, cooperative, disheveled, thin, well-developed Head exam: PRESENT: atraumatic, normocephalic Eye exam: PRESENT: conjunctiva pale, EOMI. ABSENT: nystagmus, periorbital swelling, scleral icterus Mouth exam: PRESENT: dry mucosa, neck supple, tongue midline Neck exam: ABSENT: carotid bruit, JVD, lymphadenopathy, thyromegaly, tracheal deviation, tracheostomy Respiratory exam: PRESENT: crackles, decreased breath sounds, prolonged expiratory phas, rhonchi, symmetrical, unlabored, wheezes. ABSENT: retraction, stridor Cardiovascular exam: PRESENT: RRR, +S1, +S2 Pulses: PRESENT: normal radial pulses GI/Abdominal exam: PRESENT: diminished bowel sounds, soft Extremities exam: ABSENT: calf tenderness, clubbing, joint swelling Musculoskeletal exam: ABSENT: ambulatory, deformity, dislocation Neurological exam: PRESENT: awake, oriented to person, oriented to place. ABSENT: oriented to time, oriented to situation Psychiatric exam: PRESENT: flat affect Skin exam: PRESENT: dry, warm Results Laboratory Results: 09/23/17 05:31 09/23/17 05:31 09/23/17 09/23/17 09/23/17 05:31 05:31 08:40 WBC 7.9 RBC 4.15 Hgb 12.9 Hct 38.5 MCV 93 MCH 31.0 MCHC 33.5 RDW 13.1 Plt Count 315 Seg Neutrophils % Not Reportable Lymphocytes % Not Reportable Monocytes % Not Reportable Eosinophils % Not Reportable Basophils % Not Reportable Absolute Neutrophils Not Reportable Absolute Lymphocytes Not Reportable Absolute Monocytes Not Reportable Absolute Eosinophils Not Reportable Absolute Basophils Not Reportable Sodium 141.4 Potassium 4.6 Chloride 108 H Carbon Dioxide 24 Anion Gap 9 BUN 8 Creatinine 0.63 Est GFR ( Amer) > 60 Est GFR (Non-Af Amer) > 60 Glucose 139 H Calcium 8.6 Total Bilirubin 0.2 AST 14 ALT 26 Alkaline Phosphatase 50 Total Protein 5.7 L Albumin 3.0 L Urine Color YELLOW Urine Appearance CLEAR Urine pH 7.0 Ur Specific [place] 1.010 Urine Protein NEGATIVE Urine Glucose (UA) NEGATIVE Urine Ketones NEGATIVE Urine Blood NEGATIVE Urine Nitrite NEGATIVE Ur Leukocyte Esterase MODERATE H Urine WBC (Auto) 5 Urine RBC (Auto) 1 Impressions: Chest CT 09/22/17 00:00 IMPRESSION: BILATERAL LOWER LOBE AIRSPACE DISEASE WITH TREE-IN-BUD OPACITIES LEFT UPPER LOBE COMPATIBLE MULTIFOCAL PNEUMONIA/PNEUMONITIS. STABLE ASCENDING THORACIC AORTIC ANEURYSM. Chest X-Ray 09/22/17 07:00 IMPRESSION: Lungs currently clear. Assessment & Plan - Diagnosis (1) Acute respiratory failure with hypoxemia Is this a current diagnosis for this admission?: Yes Plan: Supplemental oxygen nocturnal trend oximetry 6 minute walk (2) COPD exacerbation Is this a current diagnosis for this admission?: Yes Plan: Generic Name Dose Route Start Last Admin Trade Name Freq PRN Reason Stop Dose Admin Methylprednisolone Sodium Succinate 40 mg 09/23/17 22:00 Solu-Medrol Inj/Pf 40 Mg/1 Ml Sdv IV 10/23/17 21:59 Q12 TIFFANIE Albuterol/Ipratropium 3 ml 09/21/17 02:22 Duoneb 3 Ml Ampul NEB 10/21/17 02:21 [id number] PRN SHORTNESS OF BREATH Albuterol/Ipratropium 3 ml 09/21/17 08:00 09/23/17 14:22 Duoneb 3 Ml Ampul NEB 10/21/17 07:59 3 ml RTQ6 TIFFANIE (3) Dementia Is this a current diagnosis for this admission?: Yes (4) Moderate protein-calorie malnutrition Is this a current diagnosis for this admission?: Yes Plan: Dietary consult (5) Pneumonia Qualifiers: Pneumonia type: due to unspecified organism Laterality: unspecified laterality Lung location: unspecified part of lung Qualified Code(s): J18.9 - Pneumonia, unspecified organism Is this a current diagnosis for this admission?: Yes Plan: Radiographic infiltrates but no positive cultures thus far (6) Tobacco dependence Is this a current diagnosis for this admission?: Yes Plan: Would suggest holding on transdermal nicotine until patient demonstrates a need
[2017-09-23] MEDS: DONEPEZIL HCL 5 MG TABLET PO SCH (20:06)
--- NOTE | 2017-09-23 21:16 | RADIOLOGY REPORT (SQ) ---
EXAM DESCRIPTION: CHEST SINGLE VIEW COMPLETED DATE/TIME: 09/23/2017 8:58 pm REASON FOR STUDY: Chest Pain COMPARISON: 09/30/2017 EXAM PARAMETERS: NUMBER OF VIEWS: One view. TECHNIQUE: Single frontal radiographic view of the chest acquired. RADIATION DOSE: NA LIMITATIONS: None. FINDINGS: LUNGS AND PLEURA: No pneumothorax. Similar left basilar airspace disease and small pleura l effusion. Minimal subsegmental atelectasis in the right lung base. MEDIASTINUM AND HILAR STRUCTURES: Stable. HEART AND VASCULAR STRUCTURES: Stable. BONES: No acute findings. HARDWARE: None in the chest. OTHER: No other significant finding. IMPRESSION: Similar left basilar airspace disease and small pleural effusion. Minimal subsegmental atelectasis in the right lung base. TECHNICAL DOCUMENTATION: JOB ID: [id number] [place]-72 2010 [employer]- All Rights Reserved
[2017-09-23] MEDS ORDERED: DONEPEZIL HCL 5 MG TABLET PO SCH (22:00)
[2017-09-23 22:22] LABS: CREATINE KINASE MB 0.24 ng/mL (<4.55)
[2017-09-23 22:27] LABS: TROPONIN I < 0.012 ng/mL
[2017-09-24] MEDS: IPRATROPIUM/ALBUTEROL 0.5-2.5 MG/3 ML AMPUL NEB SCH ×4 (02:30→20:03)
[2017-09-24] MEDS: HEPARIN SOD (PORCINE) 5,000 UNIT/ML 1 ML SYRINGE SUBCUT SCH ×3 (05:48→22:17)
--- NOTE | 2017-09-24 08:14 | EKG REPORT ---
SEVERITY:- ABNORMAL ECG - SINUS RHYTHM BORDERLINE LEFT AXIS DEVIATION CONSIDER ANTEROSEPTAL INFARCT : Confirmed by: Jarvis Green MD 24-Sep-2017 08:13:11
[2017-09-24 08:42] LABS: ABSOLUTE LYMPHOCYTES (AUTO) 1.5 10^3/uL (0.5-4.7); ABSOLUTE MONOCYTES (AUTO) 0.5 10^3/uL (0.1-1.4); ABSOLUTE NEUT (AUTO) 8.7 10^3/uL (1.7-8.2); BASOPHILS % (AUTO) 0.2 % (0-2); EOSINOPHILS % (AUTO) 0.1 % (0-6); HEMATOCRIT 37.9 % (36.0-47.0); HEMOGLOBIN 12.8 g/dL (12.0-15.5); LYMPHOCYTES % (AUTO) 14.3 % (13-45); MEAN CORPUSCULAR HEMOGLOBIN 31.2 pg (27.0-33.4); MEAN CORPUSCULAR HGB CONC 33.7 g/dL (32.0-36.0); MEAN CORPUSCULAR VOLUME 93 fl (80-97); MONOCYTES % (AUTO) 4.8 % (3-13); PLATELET COUNT 392 10^3/uL (150-450); RED CELL DISTRIBUTION WIDTH 13.2 % (11.5-14.0); SEGMENTED NEUTROPHILS % (AUTO) 80.6 % (42-78); TOTAL CELLS COUNTED % (AUTO) 100 %; WHITE BLOOD COUNT 10.8 10^3/uL (4.0-10.5)
[2017-09-24 09:09] LABS: ALANINE AMINOTRANSFERASE 23 U/L (9-52); ALBUMIN 3.1 g/dL (3.5-5.0); ALKALINE PHOSPHATASE 47 U/L (38-126); ANION GAP 10 (5-19); ASPARTATE AMINO TRANSFERASE 12 U/L (14-36); BILIRUBIN,DIRECT 0.3 mg/dL (0.0-0.4); BILIRUBIN,TOTAL 0.3 mg/dL (0.2-1.3); BLOOD UREA NITROGEN 15 mg/dL (7-20); CALCIUM 9.2 mg/dL (8.4-10.2); CARBON DIOXIDE 23 mmol/L (22-30); CHLORIDE 108 mmol/L (98-107); GLUCOSE 120 mg/dL (75-110); POTASSIUM 4.5 mmol/L (3.6-5.0); SODIUM 140.6 mmol/L (137-145); TOTAL PROTEIN 5.8 g/dL (6.3-8.2)
[2017-09-24] MEDS: FLUTICASONE NASAL SPRAY 50 MCG/SPRY 120 SPRAY/16 GM NASL SCH ×2 (09:51→22:17)
[2017-09-24] MEDS: CYPROHEPTADINE HCL 4 MG TABLET PO SCH ×2 (09:51→16:59)
[2017-09-24] MEDS: LEVOTHYROXINE SODIUM 0.05 MG TABLET PO SCH (09:51)
[2017-09-24] MEDS: LEVOFLOXACIN 750 MG TABLET PO SCH (09:52)
[2017-09-24] MEDS: MEGESTROL ACETATE SUSP 400 MG/10 ML UDCUP PO SCH (09:52)
[2017-09-24] MEDS: METHYLPREDNISOLONE INJ 40 MG/1 ML SDV IV SCH (09:53)
[2017-09-24] MEDS ORDERED: AZITHROMYCIN 250 MG TABLET PO SCH (10:00)
--- NOTE | 2017-09-24 13:37 | PDOC PROGRESS REPORT ---
Subjective Progress Note for:: 09/24/17 Subjective:: Pt states that his breathing is improving. Pt currently being evaluating for difficulty swallowing. Reason For Visit: COPD EXACERBATION C PNEUMONIA Physical Exam Vital Signs: Temp Pulse Resp BP Pulse Ox 97.8 F 63 16 126/64 H 90 L 09/24/17 03:58 09/24/17 08:14 09/24/17 08:14 09/24/17 03:58 09/24/17 08:14 Pulse Oximeter Nocturnal Start: 09/23/17 16: 26 Freq: RTQ4 Status: Complete Document 09/24/17 04:00 CMI (Rec: 09/24/17 04:26 CMI [email or web address]) Nocturnal Pulse Oximetry Equipment Usage Equipment in Use Oxygen Delivery Method (includes room Room Air air) O2 Sat by Pulse Oximetry (92-100) 91 Continuous SpO2 Machine # 13 Intake & Output 09/23/17 09/24/17 09/25/17 06:59 06:59 06:59 Intake Total 1265 1100 Output Total 1250 1050 Balance 15 50 Weight 98.7 kg 59.6 kg General appearance: PRESENT: no acute distress, thin, well-nourished Eye exam: PRESENT: conjunctiva pink, EOMI. ABSENT: scleral icterus Ear exam: PRESENT: normal external ear exam Mouth exam: PRESENT: moist, tongue midline Neck exam: ABSENT: carotid bruit, JVD, lymphadenopathy, thyromegaly Respiratory exam: PRESENT: accessory muscle use, prolonged expiratory phas. ABSENT: rales, rhonchi Cardiovascular exam: PRESENT: RRR. ABSENT: diastolic murmur, rubs, systolic murmur Pulses: PRESENT: normal dorsalis pedis pul Vascular exam: PRESENT: normal capillary refill GI/Abdominal exam: PRESENT: normal bowel sounds, soft. ABSENT: distended, guarding, mass, organolmegaly, rebound, tenderness Rectal exam: PRESENT: deferred Extremities exam: PRESENT: full ROM. ABSENT: calf tenderness, clubbing, pedal edema Musculoskeletal exam: PRESENT: full ROM Neurological exam: PRESENT: alert, awake, oriented to person, oriented to place , oriented to time, oriented to situation, CN II-XII grossly intact. ABSENT: motor sensory deficit Psychiatric exam: PRESENT: appropriate affect, normal mood. ABSENT: homicidal ideation, suicidal ideation Skin exam: PRESENT: dry, intact, warm. ABSENT: cyanosis, rash Results Laboratory Results: 09/24/17 08:10 09/24/17 08:10 09/24/17 09/24/17 08:10 08:10 WBC 10.8 H RBC 4.10 Hgb 12.8 Hct 37.9 MCV 93 MCH 31.2 MCHC 33.7 RDW 13.2 Plt Count 392 Seg Neutrophils % 80.6 H Lymphocytes % 14.3 Monocytes % 4.8 Eosinophils % 0.1 Basophils % 0.2 Absolute Neutrophils 8.7 H Absolute Lymphocytes 1.5 Absolute Monocytes 0.5 Absolute Eosinophils 0.0 Absolute Basophils 0.0 Sodium 140.6 Potassium 4.5 Chloride 108 H Carbon Dioxide 23 Anion Gap 10 BUN 15 Creatinine 0.67 Est GFR ( Amer) > 60 Est GFR (Non-Af Amer) > 60 Glucose 120 H Calcium 9.2 Magnesium 2.2 Total Bilirubin 0.3 AST 12 L ALT 23 Alkaline Phosphatase 47 Total Protein 5.8 L Albumin 3.1 L 09/23/17 09/23/17 21:00 21:00 Creatine Kinase 29 L CK-MB (CK-2) 0.24 Troponin I < 0.012 Impressions: Chest CT 09/22/17 00:00 IMPRESSION: BILATERAL LOWER LOBE AIRSPACE DISEASE WITH TREE-IN-BUD OPACITIES LEFT UPPER LOBE COMPATIBLE MULTIFOCAL PNEUMONIA/PNEUMONITIS. STABLE ASCENDING THORACIC AORTIC ANEURYSM. Chest X-Ray 09/23/17 00:00 IMPRESSION: Similar left basilar airspace disease and small pleural effusion. Minimal subsegmental atelectasis in the right lung base. Assessment & Plan - Diagnosis (1) Depression Is this a current diagnosis for this admission?: Yes Plan: Will await recommendations from Dr. Tomás Cohen (2) Moderate protein-calorie malnutrition Is this a current diagnosis for this admission?: Yes Plan: Continue Megace. (3) Debility Is this a current diagnosis for this admission?: Yes Plan: PT OT (4) Acute bronchitis Is this a current diagnosis for this admission?: Yes Plan: CT demonstrates evidence consistent with multifocal pneumonia. Will continue Levaquin. Azithromycin has been discontinued. (5) Acute respiratory failure with hypoxemia Is this a current diagnosis for this admission?: Yes Plan: In setting of pneumonia and COPD exacerbation: Will continue Levaquin. Will discontinue Azithromycin. (6) COPD exacerbation Is this a current diagnosis for this admission?: Yes Plan: We will continue Levaquin. Will discontinue Zithromax. Will change patient steroids to daily. Appreciate pulmonary's assistance. (7) Dementia Is this a current diagnosis for this admission?: Yes Plan: Aricept (8) Pneumonia Qualifiers: Pneumonia type: due to unspecified organism Laterality: unspecified laterality Lung location: unspecified part of lung Qualified Code(s): J18.9 - Pneumonia, unspecified organism Is this a current diagnosis for this admission?: Yes Plan: Community-acquired pneumonia gram-positive organism: Patient on Levaquin. (9) Tobacco dependence Is this a current diagnosis for this admission?: Yes Plan: nicotine patch - Time Time Spent with patient: 15-24 minutes
--- NOTE | 2017-09-24 15:51 | ST Inp Modified Barium Swallow ---
Medical Diagnosis - Medical Diagnoses Medical Diagnosis Description & ICD-10 Code(s): COPD exacerbation, pneumonia ST Inpatient [facility] [place] - General Date: 09/24/17 - History History Obtained From: Other - EMR -: Medical - Patient admitted due to COPD exacerbation and pneumonia. Physician was suspicious of aspiration pneumonia. Medications: Medications Reviewed Allergies: Refer to medical record - Subjective Current Nutritional Means: PO Current PO Diet: Regular Current Symptoms: Pneumonia Pain: Patient reports, 0/5 - Objective Assessment: Upright, Left Lateral - Food Trials Food Trials Used: Thin liquids, Pureed, Regular The Patient: Was Able to Self Feed - Assessment Labial Function: Within Normal Limits Lingual Function: Within Normal Limits Mandibular Function: Within Normal Limits Dentition: Edentulous Velo-Pharyngeal Function: Unremarkable Laryngeal Function: Volitional Cough - wfl, Volitional Swallow - wfl - Pharyngeal Stage Initiation of Pharyngeal Stage: Normal Decreased Laryngeal Elevation: No Reduced Velo-Pharyngeal Closure: no Reduced Pressure Generation: No Reduced Tongue Base Retraction: No Pre-Swallowing Pooling in Valleculae: None Pre-Swallowing Pooling in Pyriforms: None Reduced Thyro-Hyiod Approximation: No Reduced Epiglottic Excursion: No Reduced Pharyngeal Peristalsis: No Post Swallow Residuals in Valleculae: None Post Swallow Residuals in Pyriforms: None - Impression/Summary Laryngeal Penetration: No Tracheal Aspiration: no Patient Presents With: Normal swallow at eval Risk of Aspiration: Minimal Risk of Nutritional Compromise: None - Recommendations Solid Diet Recommendations: Regular - may be modified per patient comfort level Liquid Diet Recommendations: Thin Regular Diet: Yes Dysphagia Therapy with BATH MIXER: No Recommended Techniques: Fully Upright During Meal, Small Bites and Sips - Time Total Time: 20 Total Timed Minutes: 20
[2017-09-24] MEDS: DONEPEZIL HCL 5 MG TABLET PO SCH (20:01)
[2017-09-25] MEDS: IPRATROPIUM/ALBUTEROL 0.5-2.5 MG/3 ML AMPUL NEB SCH ×2 (01:44→08:12)
[2017-09-25 05:12] LABS: HEMATOCRIT 37.5 % (36.0-47.0); HEMOGLOBIN 12.7 g/dL (12.0-15.5); MEAN CORPUSCULAR HEMOGLOBIN 31.2 pg (27.0-33.4); MEAN CORPUSCULAR HGB CONC 33.8 g/dL (32.0-36.0); MEAN CORPUSCULAR VOLUME 92 fl (80-97); PLATELET COUNT 408 10^3/uL (150-450); RED BLOOD COUNT 4.06 10^6/uL (3.72-5.28); RED CELL DISTRIBUTION WIDTH 13.1 % (11.5-14.0); WHITE BLOOD COUNT 11.6 10^3/uL (4.0-10.5)
[2017-09-25 05:28] LABS: ALANINE AMINOTRANSFERASE 20 U/L (9-52); ALBUMIN 3.2 g/dL (3.5-5.0); ALKALINE PHOSPHATASE 48 U/L (38-126); ANION GAP 9 (5-19); ASPARTATE AMINO TRANSFERASE 14 U/L (14-36); BILIRUBIN,TOTAL 0.1 mg/dL (0.2-1.3); BLOOD UREA NITROGEN 24 mg/dL (7-20); CALCIUM 9.7 mg/dL (8.4-10.2); CARBON DIOXIDE 26 mmol/L (22-30); CHLORIDE 107 mmol/L (98-107); GLUCOSE 110 mg/dL (75-110); POTASSIUM 4.6 mmol/L (3.6-5.0); SODIUM 141.7 mmol/L (137-145); TOTAL PROTEIN 5.6 g/dL (6.3-8.2)
[2017-09-25 05:30] LABS: ABSOLUTE LYMPHOCYTES# (MANUAL) 1.6 10^3/uL (0.5-4.7); ABSOLUTE MONOCYTES # (MANUAL) 1.5 10^3/uL (0.1-1.4); ABSOLUTE NEUTROPHILS# (MANUAL) 8.5 10^3/uL (1.7-8.2); BAND NEUTROPHILS % (MANUAL) 3 % (3-5); BASOPHILS % (MANUAL) 0 % (0-2); EOSINOPHILS % (MANUAL) 0 % (0-6); LYMPHOCYTES % (MANUAL) 14 % (13-45); MONOCYTES % (MANUAL) 13 % (3-13); SEGMENTED NEUTROPHILS % (MAN) 70 % (42-78); TOTAL CELLS COUNTED 100
[2017-09-25 05:33] LABS: BURR CELLS 1+; HELMET CELLS SLIGHT; OVALOCYTES SLIGHT; PLATELET CLUMPS PRESENT; PLATELET COMMENT ADEQUATE; POIKILOCYTOSIS 1+; SCHISTOCYTES 1+; TEAR DROP CELLS SLIGHT; TOXIC GRANULATION 2+; TOXIC VACUOLATION PRESENT
[2017-09-25 05:34] LABS: PLATELET LARGE PRESENT
[2017-09-25] MEDS: HEPARIN SOD (PORCINE) 5,000 UNIT/ML 1 ML SYRINGE SUBCUT SCH ×2 (05:37→13:50)
[2017-09-25] MEDS: CYPROHEPTADINE HCL 4 MG TABLET PO SCH (09:28)
[2017-09-25] MEDS: LEVOFLOXACIN 750 MG TABLET PO SCH (09:28)
[2017-09-25] MEDS: MEGESTROL ACETATE SUSP 400 MG/10 ML UDCUP PO SCH (09:30)
[2017-09-25] MEDS: LEVOTHYROXINE SODIUM 0.05 MG TABLET PO SCH (09:30)
[2017-09-25] MEDS: FLUTICASONE NASAL SPRAY 50 MCG/SPRY 120 SPRAY/16 GM NASL SCH (09:30)
[2017-09-25] MEDS: NICOTINE 21 MG/24 HR PATCH.TD24 TD SCH (09:31)
[2017-09-25] MEDS ORDERED: METHYLPREDNISOLONE INJ 40 MG/1 ML SDV IV SCH (10:00)
--- NOTE | 2017-09-25 11:38 | PDOC DISCHARGE SUMMARY ---
General - Admit/Disc Date/PCP Admission Date/Primary Care Provider: 09/21/17 02:36 MARY ANNE WORLEY MD Discharge Date: 09/25/17 - Discharge Diagnosis (1) Depression Is this a current diagnosis for this admission?: Yes Summary: Patient will need follow-up with outpatient mental health services. (2) Moderate protein-calorie malnutrition Is this a current diagnosis for this admission?: Yes Summary: Patient placed on Megace. Patient encouraged to use supplemental drinks (3) Debility Is this a current diagnosis for this admission?: Yes Summary: Patient will have home health for PT OT (4) Acute bronchitis Is this a current diagnosis for this admission?: Yes Summary: Patient will be discharged home on steroid taper, Symbicort, duo nebs as needed , nebulizer machine, and Levaquin (5) Acute respiratory failure with hypoxemia Is this a current diagnosis for this admission?: Yes Summary: In setting of community-acquired pneumonia strep pneumoniae and COPD exacerbation: Patient will continue with antibiotics, breathing treatments, and steroids (6) COPD exacerbation Is this a current diagnosis for this admission?: Yes Summary: Patient will continue with steroids, breathing treatments, and antibiotics. (7) Dementia Is this a current diagnosis for this admission?: Yes Summary: She will continue to take Aricept (8) Pneumonia Is this a current diagnosis for this admission?: Yes Summary: Secondary to strep pneumonia: Patient will complete treatment with Levaquin (9) Tobacco dependence Is this a current diagnosis for this admission?: Yes Summary: Encourage patient to discontinue tobacco use - Additional Information Resuscitation Status: Full Code Discharge Diet: Regular Discharge Activity: Activity As Tolerated Prescriptions: Budesonide/Formoterol Fumarate [Symbicort 160-4.5 Mcg Inhaler] 2 puff IH BID #1 hfa.aer.ad Ipratropium/Albuterol Sulfate [Duoneb 3 ml Ampul] 3 ml NEB RTQ6HP PRN #120 vial.neb PRN Reason: Levofloxacin [Levaquin 750 mg Tablet] 750 mg PO DAILY #5 tablet Megestrol Acetate [Megace Harriet 400 mg/10 ml Udcup] 800 mg PO DAILY #30 udc Methylprednisolone [Medrol Dosepack (4 mg/Tab) 21 Tab/Dosepak] 4 mg PO ASDIR PRN #21 tab.ds.pk PRN Reason: Home Medications: Donepezil HCl 10 mg PO QHS 09/20/17 Levothyroxine Sodium 50 mcg PO Q6AM 09/20/17 Budesonide/Formoterol Fumarate [Symbicort 160-4.5 Mcg Inhaler] 2 puff IH BID #1 hfa.aer.ad 09/25/17 Ipratropium/Albuterol Sulfate [Duoneb 3 ml Ampul] 3 ml NEB RTQ6HP PRN #120 vial.neb 09/25/17 Levofloxacin [Levaquin 750 mg Tablet] 750 mg PO DAILY #5 tablet 09/25/17 Megestrol Acetate [Megace Harriet 400 mg/10 ml Udcup] 800 mg PO DAILY #30 udc 09/25 Methylprednisolone [Medrol Dosepack (4 mg/Tab) 21 Tab/Dosepak] 4 mg PO ASDIR PRN #21 tab.ds.pk 09/25/17 History of Present Illness Patient complains of: Difficulty breathing History of Present Illness: GEO ZAMBRANO is a 72 year old female presented to hospital with complaint of difficulty breathing. Hospital Course Hospital Course: Patient is a 72-year-old female that presents to our facility with complaint of difficulty breathing. Patient was treated for COPD exacerbation. Further imaging was done due to patient having asymmetric breath sounds. CT of chest demonstrated the patient had pneumonia. Sputum culture demonstrated strep pneumoniae. Patient was placed on breathing treatments, steroids, and antibiotics and demonstrated significant improvement. Family is concerned about patient's poor eating and therefore patient was placed on Megace. Patient 's appetite improved and family was satisfied with patient's improved eating. Patient worked with PT OT has been arranged for home occupational therapy and physical therapy. Family declined rehab. Physical Exam Vital Signs: Temp Pulse Resp BP Pulse Ox 97.8 F 74 16 117/72 95 09/25/17 08:04 09/25/17 08:12 09/25/17 08:12 09/25/17 08:04 09/25/17 08:04 Pulse Oximeter Nocturnal Start: 09/23/17 16: 26 Freq: RTQ4 Status: Complete Document 09/24/17 04:00 CMI (Rec: 09/24/17 04:26 CMI [email or web address]) Nocturnal Pulse Oximetry Equipment Usage Equipment in Use Oxygen Delivery Method (includes room Room Air air) O2 Sat by Pulse Oximetry (92-100) 91 Continuous SpO2 Machine # 13 Intake & Output 09/24/17 09/25/17 09/26/17 06:59 06:59 06:59 Intake Total 1100 823 Output Total 1050 Balance 50 823 Weight 59.6 kg 56.7 kg General appearance: PRESENT: no acute distress, thin Head exam: PRESENT: atraumatic, normocephalic Eye exam: PRESENT: conjunctiva pink, EOMI. ABSENT: scleral icterus Ear exam: PRESENT: normal external ear exam Mouth exam: PRESENT: moist, tongue midline Neck exam: ABSENT: carotid bruit, JVD, lymphadenopathy, thyromegaly Respiratory exam: PRESENT: other - Coarse breath sounds however improved greatly. ABSENT: rales, rhonchi, wheezes Cardiovascular exam: PRESENT: RRR. ABSENT: diastolic murmur, rubs, systolic murmur Pulses: PRESENT: normal dorsalis pedis pul Vascular exam: PRESENT: normal capillary refill GI/Abdominal exam: PRESENT: normal bowel sounds, soft. ABSENT: distended, guarding, mass, organolmegaly, rebound, tenderness Rectal exam: PRESENT: deferred Extremities exam: PRESENT: full ROM. ABSENT: calf tenderness, clubbing, pedal edema Neurological exam: PRESENT: alert, awake, oriented to person, oriented to place , oriented to time, oriented to situation, CN II-XII grossly intact. ABSENT: motor sensory deficit Psychiatric exam: PRESENT: appropriate affect, normal mood. ABSENT: homicidal ideation, suicidal ideation Skin exam: PRESENT: dry, intact, warm. ABSENT: cyanosis, rash Results Laboratory Results: 09/25/17 03:49 09/25/17 03:49 09/25/17 09/25/17 03:49 03:49 WBC 11.6 H RBC 4.06 Hgb 12.7 Hct 37.5 MCV 92 MCH 31.2 MCHC 33.8 RDW 13.1 Plt Count 408 Seg Neutrophils % Not Reportable Lymphocytes % Not Reportable Monocytes % Not Reportable Eosinophils % Not Reportable Basophils % Not Reportable Absolute Neutrophils Not Reportable Absolute Lymphocytes Not Reportable Absolute Monocytes Not Reportable Absolute Eosinophils Not Reportable Absolute Basophils Not Reportable Sodium 141.7 Potassium 4.6 Chloride 107 Carbon Dioxide 26 Anion Gap 9 BUN 24 H Creatinine 0.78 Est GFR ( Amer) > 60 Est GFR (Non-Af Amer) > 60 Glucose 110 Calcium 9.7 Magnesium 2.4 H Total Bilirubin 0.1 L AST 14 ALT 20 Alkaline Phosphatase 48 Total Protein 5.6 L Albumin 3.2 L 09/23/17 08:40 Clean Catch Midstream Urine Culture - Final NO GROWTH 2 DAYS 09/23/17 09/23/17 21:00 21:00 Creatine Kinase 29 L CK-MB (CK-2) 0.24 Troponin I < 0.012 Impressions: Chest CT 09/22/17 00:00 IMPRESSION: BILATERAL LOWER LOBE AIRSPACE DISEASE WITH TREE-IN-BUD OPACITIES LEFT UPPER LOBE COMPATIBLE MULTIFOCAL PNEUMONIA/PNEUMONITIS. STABLE ASCENDING THORACIC AORTIC ANEURYSM. Chest X-Ray 09/23/17 00:00 IMPRESSION: Similar left basilar airspace disease and small pleural effusion. Minimal subsegmental atelectasis in the right lung base. Qualifiers - * PATEINT BEING DISCHARGED WITH ANY OF THE FOLLOWING DIAGNOSIS?: No Plan Time Spent: Greater than 30 Minutes
--- NOTE | 2017-09-25 12:46 | RADIOLOGY REPORT (SQ) ---
EXAM DESCRIPTION: COOKIE SWALLOW COMPLETED DATE/TIME: 09/24/2017 9:22 am REASON FOR STUDY: choking COMPARISON: None. TECHNIQUE: Videofluoroscopic swallowing examination was performed in conjunction with speech patholo gy. Videofluoroscopic imaging was obtained and reviewed and these are the findings: RADIATION DOSE: Fluoro time 1.18 minutes 9 images saved to PACS. LIMITATIONS: None FINDINGS: The patient was brought into the fluoro room and placed upright on a modified barium swall ow chair. The patient was then given multiple consistencies mixed with barium to swallow under live fluoroscopic video guidance. According to the Speech Pathologist there was no penetration or aspirat ion. Please refer to the speech pathology report for further details. IMPRESSION: NO EVIDENCE OF PENETRATION OR ASPIRATIONPLEASE SEE SPEECH PATHOLOGIST REPORT FOR OTHER F INDINGS AND RECOMMENDATIONS. COMMENT: Quality ID [id number]: Final reports for procedures using fluoroscopy that document radiation exp osure indices, or exposure time and number of fluorographic images (if radiation exposure indices are not available) TECHNICAL DOCUMENTATION: JOB ID: [id number] [employer]- All Rights Reserved Reading location - IP/workstation name: [email or web address]
[2017-09-25 13:10] VITALS: BP 108/69
--- NOTE | 2017-09-25 13:53 | Pulmonary Function Test ---
Pulmonary Function Test Date of Procedure:: 09/24/17 INDICATION:: Dyspnea Referring Provider: Dr. Arsenio Lee Elevator Serviceman: Barbara Ricci MANAGER ELECTRICAL - Report Spirometry: FVC 1.66 L 58% FEV1 1.20 L 56% FEV1/FVC % 72 predicted 88 FEF 25-75% 1.64 87% Impression: This study does not demonstrate obstructive ventilatory defect. There is a strong inference for restrictive ventilatory defect however restrictive ventilatory defects cannot be based on spirometry alone. If clinically indicated a complete pulmonary function tests would be advisable.
--- NOTE | 2017-09-25 13:56 | PDOC PROGRESS REPORT ---
Subjective Progress Note for:: 09/25/17 Subjective:: maybe a little better thank you Reason For Visit: COPD EXACERBATION C PNEUMONIA Physical Exam Vital Signs: Temp Pulse Resp BP Pulse Ox 97.8 F 74 16 108/69 95 09/25/17 13:07 09/25/17 13:07 09/25/17 13:07 09/25/17 13:07 09/25/17 13:07 Pulse Oximeter Nocturnal Start: 09/23/17 16: 26 Freq: RTQ4 Status: Complete Document 09/24/17 04:00 CMI (Rec: 09/24/17 04:26 CMI [email or web address]) Nocturnal Pulse Oximetry Equipment Usage Equipment in Use Oxygen Delivery Method (includes room Room Air air) O2 Sat by Pulse Oximetry (92-100) 91 Continuous SpO2 Machine # 13 Intake & Output 09/24/17 09/25/17 09/26/17 06:59 06:59 06:59 Intake Total 1100 823 Output Total 1050 Balance 50 823 Weight 59.6 kg 56.7 kg General appearance: PRESENT: no acute distress, cooperative, disheveled, obese, well-developed Head exam: PRESENT: atraumatic, normocephalic Eye exam: PRESENT: conjunctiva pale, EOMI. ABSENT: nystagmus, periorbital swelling, scleral icterus Mouth exam: PRESENT: dry mucosa, neck supple, tongue midline Neck exam: ABSENT: carotid bruit, JVD, lymphadenopathy, thyromegaly, tracheal deviation, tracheostomy Respiratory exam: PRESENT: decreased breath sounds, prolonged expiratory phas, rales, rhonchi, symmetrical, unlabored. ABSENT: crackles, retraction, stridor, tachypnea, wheezes Cardiovascular exam: PRESENT: RRR, +S1, +S2. ABSENT: tachycardia Pulses: PRESENT: normal radial pulses GI/Abdominal exam: PRESENT: diminished bowel sounds, soft Extremities exam: PRESENT: full ROM. ABSENT: calf tenderness, clubbing, joint swelling Musculoskeletal exam: PRESENT: ambulatory, full ROM. ABSENT: deformity, dislocation Neurological exam: PRESENT: awake Psychiatric exam: PRESENT: flat affect Skin exam: PRESENT: dry, warm Results Laboratory Results: 09/25/17 03:49 09/25/17 03:49 09/25/17 09/25/17 03:49 03:49 WBC 11.6 H RBC 4.06 Hgb 12.7 Hct 37.5 MCV 92 MCH 31.2 MCHC 33.8 RDW 13.1 Plt Count 408 Seg Neutrophils % Not Reportable Lymphocytes % Not Reportable Monocytes % Not Reportable Eosinophils % Not Reportable Basophils % Not Reportable Absolute Neutrophils Not Reportable Absolute Lymphocytes Not Reportable Absolute Monocytes Not Reportable Absolute Eosinophils Not Reportable Absolute Basophils Not Reportable Sodium 141.7 Potassium 4.6 Chloride 107 Carbon Dioxide 26 Anion Gap 9 BUN 24 H Creatinine 0.78 Est GFR ( Amer) > 60 Est GFR (Non-Af Amer) > 60 Glucose 110 Calcium 9.7 Magnesium 2.4 H Total Bilirubin 0.1 L AST 14 ALT 20 Alkaline Phosphatase 48 Total Protein 5.6 L Albumin 3.2 L 09/23/17 08:40 Clean Catch Midstream Urine Culture - Final NO GROWTH 2 DAYS 09/23/17 09/23/17 21:00 21:00 Creatine Kinase 29 L CK-MB (CK-2) 0.24 Troponin I < 0.012 Impressions: Chest CT 09/22/17 00:00 IMPRESSION: BILATERAL LOWER LOBE AIRSPACE DISEASE WITH TREE-IN-BUD OPACITIES LEFT UPPER LOBE COMPATIBLE MULTIFOCAL PNEUMONIA/PNEUMONITIS. STABLE ASCENDING THORACIC AORTIC ANEURYSM. Chest X-Ray 09/23/17 00:00 IMPRESSION: Similar left basilar airspace disease and small pleural effusion. Minimal subsegmental atelectasis in the right lung base. Modified Barium Swallow 09/24/17 00:00 IMPRESSION: NO EVIDENCE OF PENETRATION OR ASPIRATIONPLEASE SEE SPEECH PATHOLOGIST REPORT FOR OTHER FINDINGS AND RECOMMENDATIONS. Assessment & Plan - Diagnosis (1) Acute respiratory failure with hypoxemia Is this a current diagnosis for this admission?: Yes Plan: mild improvement SaO2 on finger pulse ox 91% at rest (2) COPD exacerbation Is this a current diagnosis for this admission?: Yes Plan: Stable thus far (3) Dementia Is this a current diagnosis for this admission?: Yes (4) Moderate protein-calorie malnutrition Is this a current diagnosis for this admission?: Yes Plan: Dietary consult (5) Pneumonia Qualifiers: Pneumonia type: due to unspecified organism Laterality: unspecified laterality Lung location: unspecified part of lung Qualified Code(s): J18.9 - Pneumonia, unspecified organism Is this a current diagnosis for this admission?: Yes Plan: Radiographic infiltrates but no positive cultures thus far (6) Tobacco dependence Is this a current diagnosis for this admission?: Yes Plan: Would suggest holding on transdermal nicotine until patient demonstrates a need
--- NOTE | 2017-09-29 14:09 | Pulmonary Function Test ---
Pulmonary Function Test Date of Procedure:: 09/25/17 INDICATION:: Dyspnea Referring Provider: Dr. Fernando Mancia - Report Spirometry: FVC 1.66 L 58% FEV1 1.20 L 56% FEV1/FVC % 72 predicted 77 FEF 25-75% 1.64 Impression: This study demonstrates severe obstructive ventilatory defect. This study implies restrictive ventilatory defect. Restrictive defect cannot be based on spirometry alone. If clinically indicated complete pulmonary function tests are warranted.
== END 2017-09-25 14:31 | disposition home health service (06) | DRG 193 ==
LOC: ER 21:36 → OBSVTOIN 09-21 02:36 → EH 09-21 02:36 → 4S 09-21 20:52
PROVIDERS: ADMIT Internal Medicine; ATTEND Internal Medicine
DX: J13 Pneumonia due to Streptococcus pneumoniae (principal); J96.01 Acute respiratory failure with hypoxia; J44.0 Chronic obstructive pulmonary disease with (acute) lower respiratory infection; J44.1 Chronic obstructive pulmonary disease with (acute) exacerbation; E44.0 Moderate protein-calorie malnutrition; E87.6 Hypokalemia; I71.2 Thoracic aortic aneurysm, without rupture; E03.9 Hypothyroidism, unspecified; G31.84 Mild cognitive impairment of uncertain or unknown etiology; F17.210 Nicotine dependence, cigarettes, uncomplicated; Z79.51 Long term (current) use of inhaled steroids; Z79.899 Other long term (current) drug therapy; Z71.6 Tobacco abuse counseling; Z68.20 Body mass index [BMI] 20.0-20.9, adult
CPT/HCPCS: 36415; 71045; 71250; 74230; 80048; 80053; 81001; 82550; 82553; 82803; 83735; 84443; 84484; 85025; 85027; 87070; 87077; 87086; 87186; 87205; 87804; 93005; 93010; 94010; 94640; 94667; 94668; 94762; 94799; 96365; 96367; 96372; 99285; G8996-GN; G8997-GN; G8998-GN; J0456; J0696; J1644; J2920; J3490; J7040; J7060; J7620

== ENCOUNTER 2017-10-06 15:46 | Observation (INO) | payer MEDICARE, OTHER ==
--- NOTE | 2017-10-06 16:14 | ER Document Report ---
ED General - General Stated Complaint: SYNCOPAL EPISODE Time Seen by Provider: 10/06/17 16:03 Mode of Arrival: Medic Information source: Relative Notes: This is a 72-year-old female brought in by EMS after being found by her granddaughter unresponsive at home. The patient has end-stage COPD and does have dementia and was at her physician's office earlier today (with the patient' s granddaughter). The returned at home at approximately 12:40 PM. The granddaughter states that the patient went to the bathroom at approximately 2: 38 PM and on coming out of the bathroom, she heard the patient fall to the ground. The granddaughter stated that when she went to see the patient, she was not breathing and they called 911 and started CPR. The granddaughter states she was on the 17th compression when the patient started breathing. Currently, the patient is alert and at baseline mental status. She denies any pain except for some chest wall pain (after the chest compressions). TRAVEL OUTSIDE OF THE [place] IN LAST 30 DAYS: No - HPI Onset: Just prior to arrival Onset/Duration: Sudden Quality of pain: No pain Severity: None Pain Level: Denies Associated symptoms: denies: Chest pain, Fever, Shortness of breath Exacerbated by: Denies Relieved by: Denies Similar symptoms previously: No Recently seen / treated by doctor: Yes - Related Data Allergies/Adverse Reactions: latex [Latex] Allergy (Mild, Verified 10/29/11 11:13) Penicillins Allergy (Verified 10/06/17 20:19) NOVACAINE Allergy (Mild, Uncoded 10/29/11 11:13) BAD HEADACHE, STOMACH UPSET Past Medical History - General Information source: Patient - Social History Smoking Status: Never Smoker Cigarette use (# per day): No Chew tobacco use (# tins/day): No Frequency of alcohol use: None Drug Abuse: None Lives with: Family Family History: Other - Unobtainable Patient has suicidal ideation: No Patient has homicidal ideation: No - Past Medical History Cardiac Medical History: Denies: Hx Coronary Artery Disease, Hx Heart Attack, Hx Hypertension Pulmonary Medical History: Reports: Hx Asthma, Hx Bronchitis, Hx COPD, Hx Pneumonia - x2 Neurological Medical History: Denies: Hx Cerebrovascular Accident, Hx Seizures Endocrine Medical History: Reports: Hx Hyperthyroidism, Hx Hypothyroidism Renal/ Medical History: Denies: Hx End Stage Renal Disease, Hx Peritoneal Dialysis Malignancy Medical History: Denies: Hx Bone Cancer, Hx Brain Cancer, Hx Colorectal Cancer, Hx Leukemia, Hx Liver Cancer, Hx Lymphoma, Hx Ovarian Cancer , Hx Pancreatic Cancer GI Medical History: Denies: Hx Cirrhosis, Hx Crohn's Disease, Hx Diverticulitis , Hx Hepatitis, Hx Hiatal Hernia, Hx Ulcer Musculoskeltal Medical History: Reports Hx Arthritis - knees, ankles, Denies Hx Fibromyalgia Skin Medical History: Denies Hx Eczema, Denies Hx Psoriasis Psychiatric Medical History: Reports: Hx Dementia, Hx Depression Traumatic Medical History: Denies: Hx Pneumothorax, Hx Traumatic Brain Injury Infectious Medical History: Denies: Hx Hepatitis, Hx HIV Past Surgical History: Reports: Hx Hysterectomy. Denies: Hx Mastectomy, Hx Open Heart Surgery, Hx Pacemaker - Immunizations Hx Diphtheria, Pertussis, Tetanus Vaccination: Yes Review of Systems - Review of Systems Constitutional: denies: Chills, Fever EENT: No symptoms reported Cardiovascular: See HPI Respiratory: No symptoms reported Gastrointestinal: No symptoms reported Genitourinary: No symptoms reported Female Genitourinary: No symptoms reported Musculoskeletal: No symptoms reported Skin: No symptoms reported Hematologic/Lymphatic: No symptoms reported Neurological/Psychological: No symptoms reported Physical Exam - Vital signs Vitals: Temp Pulse Resp BP Pulse Ox 97.7 F 82 20 108/67 96 10/06/17 15:53 10/06/17 15:53 10/06/17 15:53 10/06/17 15:53 10/06/17 15:53 Notes: Physical exam: GENERAL: 72-year-old female, alert, baseline mental status which is dementia. No obvious distress. HEAD: Atraumatic, normocephalic. EYES: Pupils equal round and reactive to light, extraocular movements intact, sclera anicteric, conjunctiva are normal. ENT: TMs normal, nares patent, oropharynx clear without exudates. Moist mucous membranes. NECK: Normal range of motion, supple without obvious mass or JVD. LUNGS: Guided wheezes bilaterally HEART: Regular rate and rhythm without murmurs, rubs or gallops. ABDOMEN: Soft, normoactive bowel sounds. No tenderness to palpation. No guarding, no rebound. No masses appreciated. EXTREMITIES: Abrasions to the knees bilaterally, no edema. NEUROLOGICAL: Cranial nerves II through XII grossly intact. Normal speech, moving all extremities. PSYCH: Normal mood, normal affect. SKIN: Warm, Dry, normal turgor, no rashes or lesions noted. Course - Re-evaluation Re-evalutation: 10/06/17 16:15 I did discuss DNR status with the patient's daughter: Patient is full code at this time. She did state that she is going to discuss the issue of DNR with her siblings when they arrived. - Vital Signs Vital signs: Temp Pulse Resp BP Pulse Ox 97.7 F 82 21 H 109/82 96 10/06/17 20:21 10/06/17 15:53 10/06/17 20:31 10/06/17 20:31 10/06/17 20:31 - Laboratory Result Diagrams: 10/06/17 16:21 10/06/17 16:21 Laboratory results interpreted by me: 10/06/17 10/06/17 10/06/17 16:21 16:21 16:21 WBC 11.0 H Glucose 127 H Magnesium 2.4 H Total Protein 5.9 L Albumin 3.4 L - Diagnostic Test Radiology reviewed: Image reviewed, Reports reviewed - EKG Interpretation by Me Rate: Normal Rhythm: Other - EKG shows a sinus rhythm with a ventricular rate of 76, left axis deviation, premature atrial complexes, no acute ST of variation or depression. Critical Care Note - Critical Care Note Total time excluding time spent on procedures (mins): 60 Discharge - Discharge Bad tableCondition: Stable Disposition: ADMITTED OBSERVATION Admitting Provider: Hospitalist - Dr Hanson Unit Admitted: Telemetry
[2017-10-06 16:35] LABS: ABSOLUTE BASOPHILS # (AUTO) 0.2 10^3/uL (0.0-0.2); ABSOLUTE EOSINOPHILS # (AUTO) 0.1 10^3/uL (0.0-0.6); ABSOLUTE LYMPHOCYTES (AUTO) 1.9 10^3/uL (0.5-4.7); ABSOLUTE MONOCYTES (AUTO) 0.8 10^3/uL (0.1-1.4); ABSOLUTE NEUT (AUTO) 8.1 10^3/uL (1.7-8.2); BASOPHILS % (AUTO) 1.4 % (0-2); EOSINOPHILS % (AUTO) 0.6 % (0-6); HEMATOCRIT 40.9 % (36.0-47.0); LYMPHOCYTES % (AUTO) 17.2 % (13-45); MEAN CORPUSCULAR HEMOGLOBIN 31.9 pg (27.0-33.4); MEAN CORPUSCULAR HGB CONC 34.2 g/dL (32.0-36.0); MEAN CORPUSCULAR VOLUME 93 fl (80-97); MONOCYTES % (AUTO) 7.4 % (3-13); PLATELET COUNT 355 10^3/uL (150-450); RED BLOOD COUNT 4.38 10^6/uL (3.72-5.28); RED CELL DISTRIBUTION WIDTH 13.5 % (11.5-14.0); SEGMENTED NEUTROPHILS % (AUTO) 73.4 % (42-78); TOTAL CELLS COUNTED % (AUTO) 100 %
[2017-10-06 16:50] LABS: ALANINE AMINOTRANSFERASE 22 U/L (9-52); ALBUMIN 3.4 g/dL (3.5-5.0); ALKALINE PHOSPHATASE 39 U/L (38-126); ANION GAP 6 (5-19); ASPARTATE AMINO TRANSFERASE 19 U/L (14-36); BILIRUBIN,DIRECT 0.4 mg/dL (0.0-0.4); BILIRUBIN,TOTAL 0.4 mg/dL (0.2-1.3); BLOOD UREA NITROGEN 19 mg/dL (7-20); CALCIUM 8.9 mg/dL (8.4-10.2); CARBON DIOXIDE 26 mmol/L (22-30); CHLORIDE 107 mmol/L (98-107); CREATINE KINASE 45 U/L (30-135); GLUCOSE 127 mg/dL (75-110); POTASSIUM 4.3 mmol/L (3.6-5.0); SODIUM 139.2 mmol/L (137-145); TOTAL PROTEIN 5.9 g/dL (6.3-8.2)
--- NOTE | 2017-10-06 16:56 | RADIOLOGY REPORT (SQ) ---
EXAM DESCRIPTION: CHEST SINGLE VIEW COMPLETED DATE/TIME: 10/06/2017 4:45 pm REASON FOR STUDY: syncope COMPARISON: August 2011 EXAM PARAMETERS: NUMBER OF VIEWS: One view. TECHNIQUE: Single frontal radiographic view of the chest acquired. RADIATION DOSE: NA LIMITATIONS: None. FINDINGS: LUNGS AND PLEURA: No opacities, masses or pneumothorax. No pleural effusion. MEDIASTINUM AND HILAR STRUCTURES: No masses. Contour normal. HEART AND VASCULAR STRUCTURES: Heart normal in size. Normal vasculature. BONES: No acute findings. HARDWARE: None in the chest. OTHER: No other significant finding. IMPRESSION: NO ACUTE RADIOGRAPHIC FINDING IN THE CHEST. TECHNICAL DOCUMENTATION: JOB ID: [id number] [employer]- All Rights Reserved Reading location - IP/workstation name: [email or web address]
[2017-10-06 17:01] LABS: CREATINE KINASE MB 1.02 ng/mL (<4.55)
[2017-10-06 17:02] LABS: TROPONIN I < 0.012 ng/mL
--- NOTE | 2017-10-06 17:10 | RADIOLOGY REPORT (SQ) ---
EXAM DESCRIPTION: CT HEAD WITHOUT COMPLETED DATE/TIME: 10/06/2017 4:55 pm REASON FOR STUDY: syncope-fall COMPARISON: None. TECHNIQUE: Axial images acquired through the brain without intravenous contrast. Images reviewed wi th bone, brain and subdural windows. Images stored on PACS. All CT scanners at this facility use dose modulation, iterative reconstruction, and/or weight based d osing when appropriate to reduce radiation dose to as low as reasonably achievable (ALARA). [facility]: Dose Right [facility]: CareDose [facility]: Dose Right [facility]: Teradose 4D [facility]: [employer] RADIATION DOSE: CT Rad equipment meets quality standard of care and radiation dose reduction techniq ues were employed. CTDIvol: 67.0 mGy. DLP: 1048 mGy-cm. mGy. LIMITATIONS: None. FINDINGS: VENTRICLES: Prominent. CEREBRUM: No masses. No hemorrhage. No midline shift. Areas of low density in the white matter mos t likely due to chronic micro-vascular ischemic change. No evidence for acute infarction. CEREBELLUM: No masses. No hemorrhage. No alteration of density. No evidence for acute infarction. EXTRAAXIAL SPACES: Mild age-related involutional change. No fluid collections. No masses. ORBITS AND GLOBE: No intra- or extraconal masses. Normal contour of globe without masses. CALVARIUM: No fracture. PARANASAL SINUSES: No fluid or mucosal thickening. SOFT TISSUES: No mass or hematoma. OTHER: No other significant finding. IMPRESSION: MILD CHRONIC CHANGES OF ATROPHY AND MICROVASCULAR ISCHEMIA. NO ACUTE PROCESS. EVIDENCE OF ACUTE STROKE: NO. TECHNICAL DOCUMENTATION: JOB ID: [id number] Quality ID # [id number]: Final reports with documentation of one or more dose reduction techniques (e.g., Au tomated exposure control, adjustment of the mA and/or kV according to patient size, use of iterative reconstruction technique) 2010 [employer]- All Rights Reserved Reading location - IP/workstation name: [email or web address]
--- NOTE | 2017-10-06 18:16 | PDOC H&P ---
History of Present Illness Admission Date/PCP: 10/06/17 18:02 MARY ANNE WORLEY MD Patient complains of: unresponsiveness History of Present Illness: This is a 71-year-old woman with advanced dementia, COPD not on home oxygen was admitted here last month with acute on chronic COPD exacerbation and acute bronchitis. Her daughters and granddaughter at bedside reported that she stopped smoking about 2 weeks ago. Today she went to see her primary care doctor for regular check and apparently once she returned home she was found unresponsive by her granddaughter who started CPR and per them the patient started breathing again after about 17 chest compressions. The patient is a DNR. She did have a CAT scan of the head negative for acute stroke and the first set of troponin negative. EKG with sinus with APCs. She denies having any pain during my visit. Her primary care doctor started her on a new medication for dementia today. Past Medical History Cardiac Medical History: Denies: Coronary Artery Disease, Myocardial Infarction, Hypertension Pulmonary Medical History: Reports: Asthma, Bronchitis, Chronic Obstructive Pulmonary Disease (COPD), Pneumonia - x2 Neurological Medical History: Denies: Seizures Endocrine Medical History: Reports: Hyperthyroidism, Hypothyroidism Renal/ Medical History: Denies: End Stage Renal Disease Malignancy Medical History: Denies: Bone Cancer, Brain Cancer, Colorectal Cancer, Leukemia, Liver Cancer , Lymphoma, Ovarian Cancer, Pancreatic Cancer GI Medical History: Denies: Cirrhosis, Crohn's Disease, Diverticulitis, Hepatitis, Hiatal Hernia Musculoskeltal Medical History: Reports: Arthritis - knees, ankles Denies: Fibromyalgia Skin Medical History: Denies: Eczema, Psoriasis Psychiatric Medical History: Reports: Dementia, Depression Traumatic Medical History: Denies: Pneumothorax, Traumatic Brain Injury Hematology: Denies: Anemia, Sickle Cell Disease Infectious Medical History: Denies: HIV Past Surgical History Past Surgical History: Reports: Hysterectomy Denies: Amputation, Mastectomy, Pacemaker Social History Smoking Status: Former Smoker Frequency of Alcohol Use: None Hx Recreational Drug Use: No Drugs: None Hx Prescription Drug Abuse: No - Advance Directive Resuscitation Status: Do Not Resuscitate Family History Family History: Other - Unobtainable Parental Family History Reviewed: No - demented Children Family History Reviewed: NA Sibling(s) Family History Reviewed.: NA Medication/Allergy Home Medications: Donepezil HCl 10 mg PO QHS 09/20/17 Levothyroxine Sodium 50 mcg PO Q6AM 09/20/17 Budesonide/Formoterol Fumarate [Symbicort 160-4.5 Mcg Inhaler] 2 puff IH BID #1 hfa.aer.ad 09/25/17 Ipratropium/Albuterol Sulfate [Duoneb 3 ml Ampul] 3 ml NEB RTQ6HP PRN #120 vial.neb 09/25/17 Levofloxacin [Levaquin 750 mg Tablet] 750 mg PO DAILY #5 tablet 09/25/17 Megestrol Acetate [Megace Harriet 400 mg/10 ml Udcup] 800 mg PO DAILY #30 udc 09/25 Methylprednisolone [Medrol Dosepack (4 mg/Tab) 21 Tab/Dosepak] 4 mg PO ASDIR PRN #21 tab.ds.pk 09/25/17 Allergies/Adverse Reactions: latex [Latex] Allergy (Mild, Verified 10/29/11 11:13) NOVACAINE Allergy (Mild, Uncoded 10/29/11 11:13) BAD HEADACHE, STOMACH UPSET Review of Systems Constitutional: PRESENT: anorexia, weight loss Nose, Mouth, and Throat: PRESENT: as per HPI. ABSENT: headache(s) Cardiovascular: ABSENT: chest pain, dyspnea on exertion Gastrointestinal: PRESENT: as per HPI Genitourinary: ABSENT: dysuria Musculoskeletal: ABSENT: joint swelling Neurological: PRESENT: as per HPI, confusion, memory loss, syncope Psychiatric: PRESENT: depression, other - psychosis Endocrine: ABSENT: polydipsia Physical Exam Vital Signs: Temp Pulse Resp BP Pulse Ox 97.7 F 82 20 108/67 95 10/06/17 15:53 10/06/17 15:53 10/06/17 15:53 10/06/17 15:53 10/06/17 16:30 General appearance: PRESENT: thin Head exam: PRESENT: atraumatic, normocephalic Eye exam: PRESENT: EOMI Mouth exam: PRESENT: dry mucosa, neck supple Neck exam: PRESENT: full ROM Respiratory exam: PRESENT: decreased breath sounds, unlabored. ABSENT: accessory muscle use GI/Abdominal exam: PRESENT: normal bowel sounds, soft Rectal exam: PRESENT: deferred Extremities exam: PRESENT: full ROM Neurological exam: PRESENT: alert, awake Psychiatric exam: PRESENT: anxious, unusual affect Skin exam: PRESENT: dry, warm Results Laboratory Results: 10/06/17 10/06/17 10/06/17 16:21 16:21 16:21 WBC 11.0 H Hgb 14.0 Hct 40.9 Plt Count 355 Sodium 139.2 Potassium 4.3 Chloride 107 Carbon Dioxide 26 BUN 19 Creatinine 0.78 Glucose 127 H Calcium 8.9 Magnesium 2.4 H Impressions: Chest X-Ray 10/06/17 16:14 IMPRESSION: NO ACUTE RADIOGRAPHIC FINDING IN THE CHEST. Head CT 10/06/17 16:15 IMPRESSION: MILD CHRONIC CHANGES OF ATROPHY AND MICROVASCULAR ISCHEMIA. NO ACUTE PROCESS. EVIDENCE OF ACUTE STROKE: NO. Assessment & Plan - Diagnosis (1) Unresponsiveness Is this a current diagnosis for this admission?: Yes Plan: Admit to telemetry overnight on observation Continue to trend cardiac enzyme CT of the head negative for acute stroke No evidence of mass or hematoma (2) COPD exacerbation Is this a current diagnosis for this admission?: Yes Plan: Continue bronchodilator therapy This admission we may assess for home oxygen need (3) Dementia Qualifiers: Dementia type: Alzheimer's disease Is this a current diagnosis for this admission?: Yes Plan: Continue her home regimen Supportive care (4) Anorexia Is this a current diagnosis for this admission?: Yes Plan: Continue Megace (5) Physical deconditioning Is this a current diagnosis for this admission?: Yes Plan: Consult physical therapy (6) DVT prophylaxis Is this a current diagnosis for this admission?: Yes Plan: Start Lovenox - Time Time Spent: 30 to 50 Minutes Anticipated discharge: Home with Homehealth Within: within 24 hours
[2017-10-06] MEDS ORDERED: IPRATROPIUM/ALBUTEROL 0.5-2.5 MG/3 ML AMPUL NEB PRN (18:32)
[2017-10-06] MEDS ORDERED: ONDANSETRON HCL INJ/PF 4 MG/2 ML SDV IV PRN (18:32)
[2017-10-06] MEDS ORDERED: RINGERS SOLUTION,LACTATED 1,000 ML IV PRN (18:32)
[2017-10-06] MEDS ORDERED: LEVOTHYROXINE SODIUM 0.05 MG TABLET PO ONE (19:30)
[2017-10-06] MEDS: DONEPEZIL HCL 5 MG TABLET PO SCH (20:22)
--- NOTE | 2017-10-06 21:26 | EKG REPORT ---
SEVERITY:- ABNORMAL ECG - SINUS RHYTHM ATRIAL PREMATURE COMPLEX PROBABLE LEFT ATRIAL ABNORMALITY ANTERIOR INFARCT, OLD : Confirmed by: Alberta Becerra 06-Oct-2017 21:25:21
[2017-10-06] MEDS ORDERED: FAMOTIDINE 20 MG TABLET PO SCH (22:00)
[2017-10-06] MEDS ORDERED: DONEPEZIL HCL 5 MG TABLET PO SCH (22:00)
[2017-10-07] MEDS: FAMOTIDINE 20 MG TABLET PO SCH ×2 (00:27→22:10)
[2017-10-07] MEDS ORDERED: LEVOTHYROXINE SODIUM 0.05 MG TABLET PO SCH (06:00)
[2017-10-07 08:31] LABS: ABSOLUTE BASOPHILS # (AUTO) 0.1 10^3/uL (0.0-0.2); ABSOLUTE EOSINOPHILS # (AUTO) 0.1 10^3/uL (0.0-0.6); ABSOLUTE MONOCYTES (AUTO) 0.9 10^3/uL (0.1-1.4); ABSOLUTE NEUT (AUTO) 8.7 10^3/uL (1.7-8.2); EOSINOPHILS % (AUTO) 0.9 % (0-6); HEMATOCRIT 35.1 % (36.0-47.0); LYMPHOCYTES % (AUTO) 17.1 % (13-45); MEAN CORPUSCULAR HEMOGLOBIN 31.2 pg (27.0-33.4); MEAN CORPUSCULAR HGB CONC 33.3 g/dL (32.0-36.0); MEAN CORPUSCULAR VOLUME 94 fl (80-97); MONOCYTES % (AUTO) 7.9 % (3-13); PLATELET COUNT 306 10^3/uL (150-450); RED BLOOD COUNT 3.75 10^6/uL (3.72-5.28); RED CELL DISTRIBUTION WIDTH 13.6 % (11.5-14.0); SEGMENTED NEUTROPHILS % (AUTO) 73.1 % (42-78); TOTAL CELLS COUNTED % (AUTO) 100 %; WHITE BLOOD COUNT 11.8 10^3/uL (4.0-10.5)
[2017-10-07 08:35] LABS: HEMOGLOBIN 11.7 g/dL (12.0-15.5)
[2017-10-07] MEDS: ENOXAPARIN SODIUM INJ 30 MG/0.3 ML DISP.SYRIN SUBCUT SCH (09:23)
[2017-10-07] MEDS: MEGESTROL ACETATE 20 MG TABLET PO SCH (10:20)
--- NOTE | 2017-10-07 16:29 | PDOC PROGRESS REPORT ---
Subjective Progress Note for:: 10/07/17 Subjective:: This is a 71-year-old woman with advanced dementia, COPD not on home oxygen presented on 10/06/2017 with unresponsiveness and has had chest compressions prior arrival.CT brain on admission negative for acute stroke. Had 3 negative cardiac enzyme. Seen and examined this morning, one of her daughters at bedside was a nurse is agreeable to palliative care. Reason For Visit: UNRESPONSIVE Physical Exam Vital Signs: Temp Pulse Resp BP Pulse Ox 98.5 F 89 18 103/57 L 95 10/07/17 11:27 10/07/17 14:39 10/07/17 14:39 10/07/17 11:27 10/07/17 14:39 Intake & Output 10/06/17 10/07/17 10/08/17 06:59 06:59 06:59 Intake Total 550 Balance 550 Weight 54.6 kg General appearance: PRESENT: no acute distress, thin Head exam: PRESENT: atraumatic, normocephalic Eye exam: PRESENT: EOMI Mouth exam: PRESENT: moist, neck supple Respiratory exam: PRESENT: clear to auscultation laura Cardiovascular exam: PRESENT: RRR GI/Abdominal exam: PRESENT: normal bowel sounds, soft Rectal exam: PRESENT: deferred Extremities exam: PRESENT: full ROM Neurological exam: PRESENT: alert, awake Psychiatric exam: PRESENT: normal mood Skin exam: PRESENT: dry, warm Results Laboratory Results: 10/07/17 08:13 10/07/17 08:13 WBC 11.8 H RBC 3.75 Hgb 11.7 L D Hct 35.1 L MCV 94 MCH 31.2 MCHC 33.3 RDW 13.6 Plt Count 306 Seg Neutrophils % 73.1 Lymphocytes % 17.1 Monocytes % 7.9 Eosinophils % 0.9 Basophils % 1.0 Absolute Neutrophils 8.7 H Absolute Lymphocytes 2.0 Absolute Monocytes 0.9 Absolute Eosinophils 0.1 Absolute Basophils 0.1 10/06/17 10/07/17 10/07/17 19:55 02:04 08:13 Troponin I < 0.012 < 0.012 < 0.012 Impressions: Chest X-Ray 10/06/17 16:14 IMPRESSION: NO ACUTE RADIOGRAPHIC FINDING IN THE CHEST. Head CT 10/06/17 16:15 IMPRESSION: MILD CHRONIC CHANGES OF ATROPHY AND MICROVASCULAR ISCHEMIA. NO ACUTE PROCESS. EVIDENCE OF ACUTE STROKE: NO. Assessment & Plan - Diagnosis (1) Unresponsiveness Is this a current diagnosis for this admission?: Yes Plan: CT of the head negative for acute stroke No evidence of mass or hematoma Cardiac enzyme negative (2) COPD exacerbation Is this a current diagnosis for this admission?: Yes Plan: Continue bronchodilator therapy She should be able to get O2 with hospice care (3) Dementia Qualifiers: Dementia type: Alzheimer's disease Is this a current diagnosis for this admission?: Yes Plan: Continue her home regimen- Namenda and Donepezil Supportive care (4) Anorexia Is this a current diagnosis for this admission?: Yes Plan: Continue Megace (5) Physical deconditioning Is this a current diagnosis for this admission?: Yes Plan: Consulted physical therapy (6) DVT prophylaxis Is this a current diagnosis for this admission?: Yes Plan: Start Lovenox - Time Time Spent with patient: 15-24 minutes Within: within 24 hours - Palliative care consulted
[2017-10-07] MEDS ORDERED: CYPROHEPTADINE HCL 4 MG TABLET PO ONE (20:00)
[2017-10-07] MEDS: DONEPEZIL HCL 5 MG TABLET PO SCH (20:38)
[2017-10-07] MEDS ORDERED: MEMANTINE HCL 10 MG TABLET PO SCH (22:00)
--- NOTE | 2017-10-07 22:02 | RADIOLOGY REPORT (SQ) ---
EXAM DESCRIPTION: HAND RIGHT 3 VIEWS COMPLETED DATE/TIME: 10/07/2017 9:34 pm REASON FOR STUDY: pain in right wrist COMPARISON: None. EXAM PARAMETERS: NUMBER OF VIEWS: Three views. TECHNIQUE: AP, lateral and oblique radiographic images acquired of the right hand. LIMITATIONS: None. FINDINGS: MINERALIZATION: Normal. BONES: No acute fracture or dislocation. No worrisome bone lesions. JOINTS: Extensive degenerative joint disease involving the 1st carpal/metacarpal joint. Mild degener ative joint changes in multiple interphalangeal joints. SOFT TISSUES: No soft tissue swelling. No foreign body. OTHER: No other significant finding. IMPRESSION: Degenerative joint disease. No acute abnormality is appreciated. TECHNICAL DOCUMENTATION: JOB ID: [id number] [employer]- All Rights Reserved Reading location - IP/workstation name: [email or web address]
[2017-10-08] MEDS ORDERED: LEVOTHYROXINE SODIUM 0.075 MG TABLET PO SCH (06:00)
--- NOTE | 2017-10-08 09:39 | Progress Note ---
Provider Note Provider Note: Appreciate palliative care consult request. However, I called patient's daughter, Ms Dominguez, to ask when she would be at hospital so I could meet with her. She asked what palliative care was and I explained that I see patients that are toward of end of life to help with symptoms, decisions or any problems that might be present. She informed me that they have a tube filler, they have C for hospice and home health and that they do not need to see me. She was very firm in this, thus I will not be seeing this patient. Thank you for consult, please feel free to call me back if family changes their mind.
[2017-10-08] MEDS: MEGESTROL ACETATE 20 MG TABLET PO SCH (09:53)
[2017-10-08] MEDS: ENOXAPARIN SODIUM INJ 30 MG/0.3 ML DISP.SYRIN SUBCUT SCH (09:54)
[2017-10-08] MEDS ORDERED: CYPROHEPTADINE HCL 4 MG TABLET PO SCH (10:00)
--- NOTE | 2017-10-08 12:16 | PDOC DISCHARGE SUMMARY ---
General - Admit/Disc Date/PCP Admission Date/Primary Care Provider: 10/06/17 18:02 MARY ANNE WORLEY MD Discharge Date: 10/08/17 - Discharge Diagnosis (1) Unresponsiveness Is this a current diagnosis for this admission?: Yes (2) Dementia Is this a current diagnosis for this admission?: Yes (3) Anorexia Is this a current diagnosis for this admission?: Yes (4) Physical deconditioning Is this a current diagnosis for this admission?: Yes (6) Severe protein-calorie malnutrition Is this a current diagnosis for this admission?: Yes (7) DVT prophylaxis Is this a current diagnosis for this admission?: Yes - Additional Information Resuscitation Status: Do Not Resuscitate Home Medications: Cyproheptadine HCl [Periactin 4 mg Tablet] 4 mg PO BID 10/06/17 Donepezil HCl [Aricept] 10 mg PO DAILY@199910/06/17 Ipratropium/Albuterol Sulfate [Duoneb 3 ml Ampul] 3 ml NEB RTQ6HP PRN 10/06/17 Donepezil HCl [Aricept 5 mg Tablet] 10 mg PO DAILY@1999 tablet 10/08/17 Levothyroxine Sodium [Synthroid 0.075 mg Tablet] 0.075 mg PO Q6AM tablet Megestrol Acetate [Megace 20 mg Tablet] 40 mg PO DAILY tablet 10/08/17 Memantine HCl [Namenda 10 mg Tablet] 10 mg PO QHS tablet 10/08/17 History of Present Illness History of Present Illness: This is a 71-year-old woman with advanced dementia, COPD not on home oxygen was admitted here last month with acute on chronic COPD exacerbation and acute bronchitis. Her daughters and granddaughter at bedside reported that she stopped smoking about 2 weeks ago. Today she went to see her primary care doctor for regular check and apparently once she returned home she was found unresponsive by her granddaughter who started CPR and per them the patient started breathing again after about 17 chest compressions. The patient is a DNR. She did have a CAT scan of the head negative for acute stroke and the first set of troponin negative. EKG with sinus with APCs. She denies having any pain during my visit. Her primary care doctor started her on a new medication for dementia today. Hospital Course Hospital Course: 71-year-old woman with advanced dementia admitted for unresponsiveness on 2017. There has not been any recurrence here in house. Please refer to H&P for further details. She is being discharged home on hospice. Physical Exam Vital Signs: Temp Pulse Resp BP Pulse Ox 98.2 F 62 20 117/62 98 10/08/17 11:21 10/08/17 11:21 10/08/17 11:21 10/08/17 11:21 10/08/17 11:21 Intake & Output 10/07/17 10/08/17 10/09/17 06:59 06:59 06:59 Intake Total 550 940 Balance 550 940 Weight 54.6 kg 56.2 kg General appearance: PRESENT: no acute distress, thin Head exam: PRESENT: atraumatic, normocephalic Eye exam: PRESENT: EOMI Mouth exam: PRESENT: moist, neck supple Neck exam: PRESENT: full ROM Respiratory exam: PRESENT: clear to auscultation laura Cardiovascular exam: PRESENT: RRR GI/Abdominal exam: PRESENT: normal bowel sounds, soft Rectal exam: PRESENT: deferred Extremities exam: ABSENT: pedal edema Musculoskeletal exam: PRESENT: full ROM Neurological exam: PRESENT: alert, awake Psychiatric exam: PRESENT: appropriate affect Results Laboratory Results: 10/07/17 08:13 10/06/17 10/07/17 10/07/17 19:55 02:04 08:13 Troponin I < 0.012 < 0.012 < 0.012 Impressions: Chest X-Ray 10/06/17 16:14 IMPRESSION: NO ACUTE RADIOGRAPHIC FINDING IN THE CHEST. Head CT 10/06/17 16:15 IMPRESSION: MILD CHRONIC CHANGES OF ATROPHY AND MICROVASCULAR ISCHEMIA. NO ACUTE PROCESS. EVIDENCE OF ACUTE STROKE: NO. Hand X-Ray 10/07/17 00:00 IMPRESSION: Degenerative joint disease. No acute abnormality is appreciated. Qualifiers - * PATEINT BEING DISCHARGED WITH ANY OF THE FOLLOWING DIAGNOSIS?: No VTE patient discharged on overlapping Therapy?: Yes Plan Time Spent: Less than 30 Minutes
--- NOTE | 2017-10-08 12:47 | Physician Advisory Note ---
Physician Advisor ProgressNote .: [facility], I have reviewed the medical record for this patient. Physician Advisor Statement: Please consider documenting, if you agree: 1. 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 and given supplements, chief of police consult, appetite stimulant 2. "COPD exacerbation was ruled out", or give evidence of "COPD exacerbation" being present this stay Thanks! CK
[2017-10-08 15:04] VITALS: BP 103/58
== END 2017-10-08 14:30 | disposition hospice, home (50) ==
LOC: ER 15:46 → EH 18:02 → 4N 21:55
PROVIDERS: ADMIT Emergency Medicine; ATTEND Emergency Medicine
DX: G30.9 Alzheimer's disease, unspecified (principal); F02.80 Dementia in other diseases classified elsewhere, unspecified severity, without behavioral disturbance, psychotic disturbance, mood disturbance, and anxiety; R63.0 Anorexia; E43 Unspecified severe protein-calorie malnutrition; Z66 Do not resuscitate; J44.1 Chronic obstructive pulmonary disease with (acute) exacerbation; F32.9 Major depressive disorder, single episode, unspecified; F29 Unspecified psychosis not due to a substance or known physiological condition; S80.212A Abrasion, left knee, initial encounter; S80.211A Abrasion, right knee, initial encounter; X58.XXXA Exposure to other specified factors, initial encounter; Z68.20 Body mass index [BMI] 20.0-20.9, adult; Z79.899 Other long term (current) drug therapy; Z87.891 Personal history of nicotine dependence; Z90.710 Acquired absence of both cervix and uterus; Z79.818 Long term (current) use of other agents affecting estrogen receptors and estrogen levels; Z79.51 Long term (current) use of inhaled steroids
CPT/HCPCS: 93005; 99291; 96360; 96361; 36415 ×2; 82553; 82550; 83735; 85025 ×2; 80053; 84484 ×2; 71045; 73130; 70450; 93010; 97110; 97163; A9270 ×10; J1650 ×2; J7120; G8978; G8979; G8980; G0378; J3490

== ENCOUNTER 2019-02-08 15:48 | Emergency (ER) | payer MEDICARE, OTHER ==
[2019-02-08] MEDS ORDERED: DIPH/PERTUSS(ACELL)/TETANUS VAC/PF 0.5 ML SYR (>=10YO) IM ONE (16:10)
[2019-02-08] MEDS ORDERED: ACETAMINOPHEN 325 MG TABLET PO ONE (16:10)
--- NOTE | 2019-02-08 16:11 | ER Document Report ---
ED Medical Screen (RME) - General Chief Complaint: Thumb Injury Stated Complaint: SWOLLEN THUMB Time Seen by Provider: 02/08/19 16:09 Primary Care Provider: MARY ANNE WORLEY MD [Primary Care Provider] - Follow up as needed Information source: Relative Notes: Patient's daughter was out of town over the weekend and came home and noticed that patient had right thumb injury with pain and swelling. Patient has a history of dementia and is uncertain what happened to her finger. I have greeted and performed a rapid initial assessment of this patient. A comprehensive ED assessment and evaluation of the patient, analysis of test results and completion of the medical decision making process will be conducted by additional ED providers. TRAVEL OUTSIDE OF THE [place] IN LAST 30 DAYS: No - Related Data Allergies/Adverse Reactions: latex [Latex] Allergy (Mild, Verified 10/29/11 11:13) Penicillins Allergy (Verified 10/06/17 20:19) NOVACAINE Allergy (Mild, Uncoded 10/29/11 11:13) BAD HEADACHE, STOMACH UPSET Past Medical History - Past Medical History Cardiac Medical History: Denies: Hx Coronary Artery Disease, Hx Heart Attack, Hx Hypertension Pulmonary Medical History: Reports: Hx Asthma, Hx Bronchitis, Hx COPD, Hx Pne umonia - x2 Neurological Medical History: Denies: Hx Cerebrovascular Accident, Hx Seizures Endocrine Medical History: Reports: Hx Hyperthyroidism, Hx Hypothyroidism Renal/ Medical History: Denies: Hx End Stage Renal Disease, Hx Peritoneal Dialysis Malignancy Medical History: Denies: Hx Bone Cancer, Hx Brain Cancer, Hx Colorectal Cancer, Hx Leukemia, Hx Liver Cancer, Hx Lymphoma, Hx Ovarian Cancer, Hx Pancreatic Cancer GI Medical History: Denies: Hx Cirrhosis, Hx Crohn's Disease, Hx Diverticulitis, Hx Hepatitis, Hx Hiatal Hernia, Hx Ulcer Musculoskeltal Medical History: Reports Hx Arthritis - knees, ankles, Denies Hx Fibromyalgia Skin Medical History: Denies Hx Eczema, Denies Hx Psoriasis Psychiatric Medical History: Reports: Hx Dementia, Hx Depression Traumatic Medical History: Denies: Hx Pneumothorax, Hx Traumatic Brain Injury Infectious Medical History: Denies: Hx Hepatitis, Hx HIV Past Surgical History: Reports: Hx Hysterectomy. Denies: Hx Mastectomy, Hx Open Heart Surgery, Hx Pacemaker - Immunizations Hx Diphtheria, Pertussis, Tetanus Vaccination: Yes History of Influenza Vaccine for 05/2017 - 10/2017 Season: Yes Influenza Administration Date for 05/2017 - 10/2017 Season: 07/24/17 Physical Exam - Vital signs Vitals: Temp Pulse Resp BP Pulse Ox 98.0 F 63 18 113/62 95 02/08/19 16:01 02/08/19 16:01 02/08/19 16:01 02/08/19 16:01 02/08/19 16:01 - General Notes: Right thumb tenderness swelling with laceration to ulnar aspect of right thumb with nail avulsion Course - Vital Signs Vital signs: Temp Pulse Resp BP Pulse Ox 98.0 F 63 18 113/62 95 02/08/19 16:01 02/08/19 16:01 02/08/19 16:01 02/08/19 16:01 02/08/19 16:01 Doctor's Discharge - Discharge Referrals: MARY ANNE WORLEY MD [Primary Care Provider] - Follow up as needed
--- NOTE | 2019-02-08 16:37 | RADIOLOGY REPORT (SQ) ---
EXAM DESCRIPTION: FINGER RIGHT COMPLETED DATE/TIME: 02/08/2019 4:22 pm REASON FOR STUDY: unk injury, R thumb pain/swelling/nail avulsio COMPARISON: None. NUMBER OF VIEWS: Three views. TECHNIQUE: AP, lateral, and oblique images acquired of the right thumb. LIMITATIONS: None. FINDINGS: MINERALIZATION: Normal. BONES: No acute fracture or dislocation. No worrisome bone lesions. SOFT TISSUES: Right thumb finger tip soft tissue swelling. No foreign body. OTHER: No other significant finding. IMPRESSION: Right thumb finger tip soft tissue swelling. No radiopaque foreign body or soft tissue gas. No underlying fracture COMMENT: SITE OF TRAUMA/COMPLAINT MARKED/STAMP COMPLETED: YES. TECHNICAL DOCUMENTATION: JOB ID: [id number] [employer]- All Rights Reserved Reading location - IP/workstation name: [email or web address]
--- NOTE | 2019-02-08 17:45 | ER Document Report ---
ED General - General Chief Complaint: Thumb Injury Stated Complaint: SWOLLEN THUMB Time Seen by Provider: 02/08/19 16:09 Primary Care Provider: MARY ANNE WORLEY MD [Primary Care Provider] - Follow up in 3-5 days Notes: Patient is a 73-year-old female with dementia that presents to the emergency department for chief complaint of right thumb injury. Patient apparently had injured her thumb at some point between Thursday and today, her family noticed that when he got home today, they did not notice it on Thursday, patient has underlying dementia is not sure she thinks maybe she hit it on the [place] but she does not recall all the events. And her nail had fallen off her thumb. She is now redness around it, they did not note any pus drainage, but it seemed to be more swollen so they decided to bring her to the emergency department. Patient denies having any significant pain at this time, denies any fevers, chills, night sweats, denies any other complaints. Past Medical History: Dementia, COPD Past Surgical History: Hysterectomy, multiple abdominal surgeries for failed mesh Social History: Former smoker, denies alcohol or drug use. Family History: Reviewed and noncontributory for presenting illness Allergies: Reviewed, see documented allergy list. REVIEW OF SYSTEMS: Other than noted above, the 12 point review of systems was reviewed with the patient and were negative, all pertinent findings are included in the HPI. PHYSICAL EXAMINATION: Vital signs reviewed, nursing noted reviewed. GENERAL: Well-appearing, well-nourished and in no acute distress. HEAD: Atraumatic, normocephalic. EYES: Eyes appear normal, sclera anicteric, conjunctiva are normal. ENT: Moist mucous membranes. NECK: Normal range of motion, supple without lymphadenopathy LUNGS: Breath sounds clear to auscultation bilaterally and equal. No wheezes rales or rhonchi. HEART: Regular rate and rhythm without murmurs EXTREMITIES: Patient's right thumb, has the nail completely avulsed, there is mild ecchymosis underneath, and erythema, and there is injury that extends medially and laterally to the nailbed as well, there is no nailbed laceration however. Is mild tenderness to palpation, redness, and mild edema, but no significant tenderness over the flexor tendon, and no pain with range of motion of the thumb, there is no lymphangitis, the rest of her extremity exam is grossly unremarkable. NEUROLOGICAL: No focal neurological deficits. Moves all extremities spontaneously Motor and sensory grossly intact on exam. PSYCH: Normal mood, normal affect. SKIN: Warm, Dry, normal turgor, no rashes or lesions noted on exposed skin TRAVEL OUTSIDE OF THE [place] IN LAST 30 DAYS: No - Related Data Allergies/Adverse Reactions: latex [Latex] Allergy (Mild, Verified 10/29/11 11:13) Penicillins Allergy (Verified 10/06/17 20:19) NOVACAINE Allergy (Mild, Uncoded 10/29/11 11:13) BAD HEADACHE, STOMACH UPSET Past Medical History - General Information source: Relative - Social History Smoking Status: Former Smoker Frequency of alcohol use: None Drug Abuse: None Family History: Other - Unobtainable Patient has suicidal ideation: No Patient has homicidal ideation: No - Past Medical History Cardiac Medical History: Denies: Hx Coronary Artery Disease, Hx Heart Attack, Hx Hypertension Pulmonary Medical History: Reports: Hx Asthma, Hx Bronchitis, Hx COPD, Hx Pneumonia - x2 Neurological Medical History: Denies: Hx Cerebrovascular Accident, Hx Seizures Endocrine Medical History: Reports: Hx Hyperthyroidism, Hx Hypothyroidism Renal/ Medical History: Denies: Hx End Stage Renal Disease, Hx Peritoneal Dialysis Malignancy Medical History: Denies: Hx Bone Cancer, Hx Brain Cancer, Hx Colorectal Cancer, Hx Leukemia, Hx Liver Cancer, Hx Lymphoma, Hx Ovarian Cancer, Hx Pancreatic Cancer GI Medical History: Denies: Hx Cirrhosis, Hx Crohn's Disease, Hx Diverticulitis, Hx Hepatitis, Hx Hiatal Hernia, Hx Ulcer Musculoskeletal Medical History: Reports Hx Arthritis - knees, ankles, Denies Hx Fibromyalgia Skin Medical History: Denies Hx Eczema, Denies Hx Psoriasis Psychiatric Medical History: Reports: Hx Dementia, Hx Depression Traumatic Medical History: Denies: Hx Pneumothorax, Hx Traumatic Brain Injury Infectious Medical History: Denies: Hx Hepatitis, Hx HIV Past Surgical History: Reports: Hx Hysterectomy. Denies: Hx Mastectomy, Hx Open Heart Surgery, Hx Pacemaker - Immunizations Hx Diphtheria, Pertussis, Tetanus Vaccination: Yes Physical Exam - Vital signs Vitals: Temp Pulse Resp BP Pulse Ox 98.0 F 63 18 113/62 95 02/08/19 16:01 02/08/19 16:01 02/08/19 16:01 02/08/19 16:01 02/08/19 16:01 Course - Re-evaluation Re-evalutation: Patient seen and examined vital signs reviewed. Patient was evaluated and treated as appropriate for the patient's presenting symptoms and complaint, with consideration of any critical or life threatening conditions that may be associated with their obtained history and exam as noted above. Patient was treated with wound care, and bacitracin was placed over the wound. The patient was re-evaluated and was stable, I do feel the patient had a traumatic injury to her nail, that likely caused a subungual hematoma, that eventually resulted in the patient's nail falling off. There is not a significant evidence of infection at this time, will cover with doxycycline, patient given a prescription for this, they are advised to do warm soaks, and to protect the nailbed, with bacitracin and gauze. Evaluation was most consistent with right thumb contusion. Plan of care was discussed with the patient at this point, after careful consideration I feel that that patient can be discharged from the emergency department, the patient was educated treatments and reasons to return to the emergency department based on their presumed diagnosis as noted above, they were advised to followup with a primary care physician in 2-3 days. Patient was agreeable to plan of care. *Note is created using voice recognition software and may contain spelling, syntax or grammatical errors. Finger X-Ray 02/08/19 16:09 IMPRESSION: Right thumb finger tip soft tissue swelling. No radiopaque foreign body or soft tissue gas. No underlying fracture - Vital Signs Vital signs: Temp Pulse Resp BP Pulse Ox 98 F 51 L 18 135/47 H 97 02/08/19 18:36 02/08/19 18:36 02/08/19 18:36 02/08/19 18:36 02/08/19 18:36 Discharge - Discharge Clinical Impression: Thumb injury Qualifiers: Encounter type: initial encounter Laterality: right Qualified Code(s): S69.91XA - Unspecified injury of right wrist, hand and finger(s), initial encounter Condition: Stable Disposition: HOME, SELF-CARE Instructions: Avulsed Nail ([facility]) Additional Instructions: Please soak, and warm soapy water the thumb for 10 minutes, 4 times daily for 5 days, and at least twice daily apply triple antibiotic ointment to the thumb TWICE DAILY FOR 7 DAYS. Complete the entire course of antibiotics as directed, and follow-up with your primary care physician. Monitor for worsening signs of infection such as increased redness, or streaking up the arm. Prescriptions: RX: Doxycycline Hyclate 100 mg PO BID #14 capsule Referrals: MARY ANNE WORLEY MD [Primary Care Provider] - Follow up in 3-5 days
[2019-02-08 18:37] VITALS: BP 135/47
== END 2019-02-08 18:42 | disposition home or self-care (01) ==
LOC: ER 15:48
DX: S69.91XA Unspecified injury of right wrist, hand and finger(s), initial encounter (principal); F03.90 Unspecified dementia, unspecified severity, without behavioral disturbance, psychotic disturbance, mood disturbance, and anxiety; X58.XXXA Exposure to other specified factors, initial encounter; J44.9 Chronic obstructive pulmonary disease, unspecified; Z87.891 Personal history of nicotine dependence
CPT/HCPCS: 99283; 90471; 73140; 90715; A9270